=== PATIENT | male | born 1995 | race Caucasian/White ===

== ENCOUNTER 2018-10-23 10:36 | Emergency (ER) | payer OTHER ==
--- NOTE | 2018-10-23 10:50 | ED ---
Abdominal Pain/Male - HPI Summary HPI Summary: This pt is a 23 y/o male presenting to [facility] c/o RLQ abd pain today. Pt reports he had sudden onset of RLQ abd pain that radiates to his LLQ since this morning. He currently rates his pain 6/10 in severity. Denies fever, chills, nausea, vomiting, diarrhea, chest pain, SOB. Per nurse's note pt did not eat today but he last drank coffee and water at 10:00 today. Denies any PMHx. FHx of brother with appendicitis. - History of Current Complaint Chief Complaint: EDAbdPain Stated Complaint: ABD PAIN/FEVER/CHILLS Hx Obtained From: Patient Onset/Duration: Sudden Onset, Lasting Hours, Still Present Timing: Lasting Hours Severity Currently: Moderate Pain Intensity: 6 Pain Scale Used: 0-10 Numeric Location: Discrete At: RLQ Radiates: Yes Radiates to: LLQ Aggravating Factor(s): Nothing Alleviating Factor(s): Nothing Associated Signs And Symptoms: Negative: Fever, Chest Pain, Nausea, Vomiting, Diarrhea - Allergies/Home Medications Allergies/Adverse Reactions: Allergies Allergy/AdvReac Type Severity Reaction Status Date / Time No Known Allergies Allergy Verified 10/23/18 10:45 Home Medications: Home Medications NK [No Home Medications Reported] 10/23/18 [History Confirmed 10/23/18] PMH/Surg Hx/FS Hx/Imm Hx Endocrine/Hematology History: Denies: Hx Diabetes Cardiovascular History: Denies: Hx Hypertension Infectious Disease History: No Infectious Disease History: Denies: Traveled Outside the [place] in Last 30 Days - Family History Family History: Brother with appendicitis - Social History Alcohol Use: Occasionally Substance Use Type: Reports: None Smoking Status (MU): Never Smoked Tobacco Review of Systems Negative: Fever, Chills Negative: Chest Pain Negative: Shortness Of Breath Positive: Abdominal Pain. Negative: Vomiting, Diarrhea, Nausea All Other Systems Reviewed And Are Negative: Yes Physical Exam - Summary Physical Exam Summary: VITAL SIGNS: Reviewed. GENERAL: Patient is a well-developed and nourished male who is lying comfortable in the stretcher. Patient is not in any acute respiratory distress. HEAD AND FACE: Normocephalic and atraumatic. EYES: PERRLA, EOMI x 2, No injected conjunctiva. EARS: Hearing grossly intact. Ear canals and tympanic membranes are WNL. MOUTH: Oropharynx within normal limits. NECK: Supple, trachea is midline, no adenopathy, no JVD. CHEST: Symmetric, no tenderness at palpation LUNGS: Clear to auscultation bilaterally. No wheezing or crackles. CVS: RRR, S1 and S2 present, no murmurs or gallops appreciated. ABDOMEN: Soft, RLQ tenderness. No signs of distention. Positive bowel sounds. No rebound no guarding, and no masses palpated. No abdominal bruit or pulsations. EXTREMITIES: FROM in all major joints, no edema, no cyanosis or clubbing. NEURO: Alert and oriented x 3. No acute neurological deficits. Speech is normal. SKIN: Dry and warm Triage Information Reviewed: Yes Vital Signs On Initial Exam: Initial Vitals Temp Pulse Resp BP Pulse Ox 98.7 F 105 18 152/79 97 10/23/18 10:44 10/23/18 10:44 10/23/18 10:44 10/23/18 10:44 10/23/18 10:44 Vital Signs Reviewed: Yes Diagnostics - Vital Signs Vital Signs Temp Pulse Resp BP Pulse Ox 10/23/18 10:44 98.7 F 105 18 152/79 97 - Laboratory Result Diagrams: 10/23/18 11:02 10/23/18 11:02 Lab Statement: Any lab studies that have been ordered have been reviewed, and results considered in the medical decision making process. - CT Abdomen/Pelvis CT CT Interpretation Completed By: Radiologist Summary of CT Findings: IMPRESSION: No acute CT pathology of the visualized abdomen and pelvis. Dr. Rai has reviewed this report. Re-Evaluation - Re-Evaluation First Eval Re-Evaluation Time: 13:53 Comment: Pt denies any testicular pain. I reviewed the lab and CT results with the pt. Pt will be discharged home. Abdominal Pain Fem Course/Dx - Course Assessment/Plan: Blood work without any significant abnormality except for WBCs of 12.3, hemoglobin 13, hematocrit 39 platelets 243. Glucose is 101 and CRP is 75.24. Abdominal pelvic CT impression: no acute CT pathology of visualized abdomen and pelvis. Therefore in the ED course the patient was given toradol for the pain. The patient will be discharged home with follow-up from primary care physician. Patient is hemodynamically stable alert and oriented 3. I discussed all the findings and test results with the patient. Patient was instructed to return to the emergency room immediately if any of the symptoms return or worsens. Plan of care was discussed with the patient and understands and agrees. All questions were answered at patient satisfaction. There were no further complaints or concerns. Lung exam before discharge: CTA B/L. Good air exchange. No wheezing or crackles heard. CVS: S1 and S2 present. No murmurs appreciated. Patient is alert and oriented x 3. Patient is hemodynamically stable. Patient will be discharged home with follow up PCP in the next 2-3 days. - Diagnoses Differential Diagnosis/HQI/PQRI: Appendicitis, Bowel Obstruction, Constipation, Ureteral Stone, Urinary Tract Infection Provider Diagnoses: Lower abdominal pain Discharge - Sign-Out/Discharge Documenting (check all that apply): Patient Departure - discharge home Patient Received Moderate/Deep Sedation with Procedure: No - Discharge Plan Condition: Stable Disposition: HOME Patient Education Materials: Abdominal Pain (ED) Referrals: [facility], [Z.BUSINESS, APPLICATION, OTHER] - Additional Instructions: FOLLOW UP WITH YOUR PRIMARY CARE PROVIDER IN 2-3 DAYS. RETURN TO THE ED FOR ANY NEW OR WORSENING SYMPTOMS. - Billing Disposition and Condition Condition: STABLE Disposition: Home - Attestation Statements Document Initiated by Scribe: Yes Documenting Scribe: Magalys Zuñiga Provider For Whom Edelmira is Documenting (Include Credential): Carlo Rai MD Scribe Attestation: Magalys Romero, scribed for Carlo Rai MD on 10/23/18 at 1524. Scribe Documentation Reviewed: Yes Provider Attestation: The documentation as recorded by the Magalys romero accurately reflects the service I personally performed and the decisions made by de, Carlo Rai MD Status of Scribe Document: Viewed
[2018-10-23] MEDS ORDERED: NS 0.9% 1000 ML** 1,000 ML IV ONE (10:57)
[2018-10-23 11:09] LABS: ABS Basophils 0 10^3/ul (0-0.2); ABS Eosinophils 0 10^3/ul (0-0.6); ABS Lymphocytes 0.9 10^3/ul (1.0-4.8); ABS Monocytes 1.2 10^3/ul (0-0.8); ABS Neutrophils 10.2 10^3/ul (1.5-7.7); ABS Nucleated RBC 0 10^3/ul; Eosinophil % 0 %; Hematocrit 39 % (42-52); Mean Corpuscular HGB Conc 34 g/dl (31-36); Mean Corpuscular Hemoglobin 30 pg (27-31); Mean Corpuscular Volume 88 fL (80-94); Mean Platelet Volume 6.9 fL (7.4-10.4); Nucleated Red Blood Cells % 0; Platelet Count 243 10^3/ul (150-450); Red Blood Count 4.39 10^6/ul (4.00-5.40); Red Cell Distribution Width 15 % (10.5-15); White Blood Count 12.3 10^3/ul (3.5-10.8)
[2018-10-23 11:44] LABS: Albumin 4.2 g/dL (3.2-5.2); Albumin/Globulin Ratio 1.4 (1-3); BUN/Creatinine Ratio 12.8 (8-20); C Reactive Protein 75.24 mg/L (<8.01); Calcium 9.3 mg/dL (8.6-10.3); EGFR African American 103.3 (>60); EGFR Non-African American 85.4 (>60); Potassium 4.3 mmol/L (3.5-5.0); Total Bilirubin 0.5 mg/dL (0.2-1.0); Total Protein 7.2 g/dL (6.4-8.9)
[2018-10-23] MEDS ORDERED: Iohexol 300* (CONTRAST) 10 ML SDV IV ONE (12:09)
[2018-10-23 12:23] LABS: Urine Appearance Clear; Urine Bacteria Absent (Absent); Urine Bilirubin Negative (Negative); Urine Blood 1+ (Negative); Urine Color Straw; Urine Glucose Negative (Negative); Urine Ketones Negative (Negative); Urine Nitrite Negative (Negative); Urine Protein Negative (Negative); Urine Red Blood Cell Trace(0-2/hpf) (Absent); Urine Specific Gravity 1.008 (1.010-1.030); Urine Urobilinogen Negative (Negative); Urine White Blood Cell Trace(0-5/hpf) (Absent)
[2018-10-23] MEDS ORDERED: Ketorolac INJ* 30 MG/ML 1 ML VIAL IV PUSH ONE (13:50)
[2018-10-23 14:10] VITALS: BP 121/78
== END 2018-10-23 14:09 | disposition home or self-care (01) ==
LOC: ED 10:36
DX: R10.31 Right lower quadrant pain (principal)
CPT/HCPCS: 36415; 74177; 80053; 81003; 81015; 83605; 83690; 85025; 86140; 87086; 96361; 96374; 99282; J1885; Q9967

== ENCOUNTER 2019-01-21 00:05 | Inpatient (IN) | payer OTHER ==
--- NOTE | 2019-01-21 01:02 | ED ---
Adult Trauma - HPI Summary HPI Summary: Patient brought to ED by EMS with hx of ETOH and fall with head injury and + LOC. LOC apparently from 30 seconds to 1 minute. No other details provided. Patient alert and oriented. Patient responds to questions coherently, but repeatedly asking to be left alone. States he does not remember fall. States he had a couple beers. Denies GAMEZ, vision change, N/V, fever, cough, sore throat , CP, SOB, N/V/D, abdominal pain, change in urine, change in BM. - History of Current Complaint Chief Complaint: EDFall Stated Complaint: FALL/ETOH PER EMS Time Seen by Provider: 01/21/19 00:14 Hx Obtained From: Patient, EMS Mechanism of Injury: Fall Loss of Consciousness: brief (seconds) Current Severity: None Pain Intensity: 0 Pain Scale Used: 0-10 Numeric Aggravating Factor(s): Nothing Alleviating Factor(s): Nothing Associated Signs & Symptoms: Positive: Loss of Consciousness - Allergy/Home Medications Allergies/Adverse Reactions: Allergies Allergy/AdvReac Type Severity Reaction Status Date / Time No Known Allergies Allergy Verified 01/21/19 00:18 PMH/Surg Hx/FS Hx/Imm Hx Endocrine/Hematology History: Denies: Hx Diabetes Cardiovascular History: Denies: Hx Hypertension, Hx Pacemaker/ICD History: Denies: Hx Renal Disease Sensory History: Denies: Hx Eye Prosthesis Opthamlomology History: Denies: Hx Legally Blind EENT History: Denies: Hx Deafness Neurological History: Denies: Hx Dementia Psychiatric History: Denies: Hx Autism Infectious Disease History: No Infectious Disease History: Denies: Traveled Outside the [place] in Last 30 Days - Family History Family History: Brother with appendicitis - Social History Alcohol Use: Occasionally Substance Use Type: Reports: None Smoking Status (MU): Never Smoked Tobacco Review of Systems Constitutional: Negative Eyes: Negative ENT: Negative Cardiovascular: Negative Respiratory: Negative Gastrointestinal: Negative Genitourinary: Negative Musculoskeletal: Negative Skin: Negative Neurological: Negative Psychological: Normal All Other Systems Reviewed And Are Negative: Yes Physical Exam - Summary Physical Exam Summary: Patient somnolent, but responsive once awoken. Somewhat confused about events, but oriented to person date, and place. Mumbles answers unless pressed to speak more clearly. Does not remember fall. Neuro exam normal. Mild abrasion to superior/posterior head. No other evidence of trauma to head, face, mouth noted. Full range of motion of neck and jaw. No pain with palpation of back, abdomen, chest wall. Patient moves all 4 extremities freely. Triage Information Reviewed: Yes Vital Signs On Initial Exam: Initial Vitals Temp Pulse Resp BP Pulse Ox 97.9 F 111 22 147/72 100 01/21/19 00:13 01/21/19 00:13 01/21/19 00:13 01/21/19 00:13 01/21/19 00:13 Vital Signs Reviewed: Yes Appearance: Positive: Well-Appearing Skin: Positive: Warm Head/Face: Positive: Normal Head/Face Inspection Eyes: Positive: Normal ENT: Positive: Normal ENT inspection Dental: Negative: Dental Fracture @, Bleeding Neck: Positive: Supple Respiratory/Lung Sounds: Positive: Clear to Auscultation Cardiovascular: Positive: Normal Abdomen Description: Positive: Nontender Musculoskeletal: Positive: Normal Neurological: Positive: Normal Psychiatric: Positive: Normal AVPU Assessment: Alert - Melanie Coma Scale Best Eye Response: 4 - Spontaneous Best Motor Response: 6 - Obeys Commands Best Verbal Response: 5 - Oriented Coma Scale Total: 15 Diagnostics - Vital Signs Vital Signs Temp Pulse Resp BP Pulse Ox 01/21/19 01:00 72 97 01/21/19 00:57 72 122/80 93 01/21/19 00:13 97.9 F 111 22 147/72 100 - Laboratory Result Diagrams: 01/23/19 09:17 01/23/19 09:17 Lab Statement: Any lab studies that have been ordered have been reviewed, and results considered in the medical decision making process. Adult Trauma Course/Dx - Course Course Of Treatment: Patient brought to ED by EMS with hx of ETOH and fall with head injury and + LOC. LOC apparently from 30 seconds to 1 minute. No other details provided. Patient alert and oriented. Patient responds to questions coherently, but repeatedly asking to be left alone. States he does not remember fall. States he had a couple beers. Denies GAMEZ, vision change, N/V, fever, cough, sore throat, CP, SOB, N/V/D, abdominal pain, change in urine, change in BM. Physical exam:Patient somnolent, but responsive once awoken. Somewhat confused about events, but oriented to person date, and place. Mumbles answers unless pressed to speak more clearly. Does not remember fall. Neuro exam normal. Mild abrasion to superior/posterior head. No other evidence of trauma to head, face, mouth noted. Full range of motion of neck and jaw. No pain with palpation of back, abdomen, chest wall. Patient moves all 4 extremities freely. Vital signs within normal limits. WBC 15.8. Potassium 2.9. Creatinine 1.23. EtOH 54. Patient's somnolent, somewhat confused behavior inconsistent with EtOH level is 54. Labs otherwise unremarkable. CT brain positive for subdural hematoma, parenchymal hematoma, cerebral edema, subarachnoid hemorrhage. CT cervical spine negative for acute process. Spoke with neurosurgery mobile application engineer Ezekiel who stated he would review the CAT scan results and come in to evaluate patient. Discussed patient with attending Dr. Smith who also evaluated patient and after reviewing imaging results recommended patient be given mannitol 45mg IV and Keppra 1g IV. Patient evaluated by Dr. Falcon who recommends admission to ICU. EKG A. fib. Dr. Smith recommended magnesium 2 g IV and potassium 10MEQ IV 2. Patient admitted to [facility] [place]. - Diagnoses Provider Diagnoses: Subdural hematoma, Parenchymal hemorrhage, Cerebral edema, Subarachnoid hemorrhage, Fall, Hypokalemia, A-fib, Alcohol abuse - Critical Care Time Critical Care Time: 30-74 min Discharge - Sign-Out/Discharge Documenting (check all that apply): Patient Departure - Discharge Plan Condition: Fair Disposition: ADMITTED TO [facility] - Billing Disposition and Condition Condition: FAIR Disposition: Admitted to [facility]
[2019-01-21] MEDS ORDERED: MANNITOL IV ONE ×2 (01:54→15:00)
[2019-01-21] MEDS ORDERED: MANNITOL 20% IV ONE (01:54)
[2019-01-21] MEDS ORDERED: levETIRAcetam IV* 1,000 MG in NS 0.9% 100 ML* 100 ML IVPB ONE (01:56)
[2019-01-21] MEDS ORDERED: Mannitol 25% (12.5 GM) 50 ML* 12.5 GM/50 ML VIAL ONE ×5 (01:58→13:12)
[2019-01-21] MEDS ORDERED: levETIRAcetam 1000MG IVPREMIX* 1,000 MG/100 ML BAG IVPB ONE (02:03)
[2019-01-21 02:13] LABS: Hematocrit 42 % (42-52); Hemoglobin 13.9 g/dL (14.0-18.0); Mean Corpuscular HGB Conc 33 g/dL (31-36); Mean Corpuscular Hemoglobin 30 pg (27-31); Mean Corpuscular Volume 89 fL (80-94); Mean Platelet Volume 7.7 fL (7.4-10.4); Platelet Count 336 10^3/uL (150-450); Red Blood Count 4.69 10^6 /uL (4.18-5.48); Red Cell Distribution Width 14 % (10.5-15); White Blood Count 15.8 10^3/uL (3.5-10.8)
[2019-01-21 02:26] LABS: ALT 12 U/L (7-52); AST 24 U/L (13-39); Albumin 4.5 g/dL (3.2-5.2); Albumin/Globulin Ratio 1.5 (1-3); Alkaline Phosphatase 67 U/L (34-104); Anion Gap 11 mmol/L (2-11); BUN/Creatinine Ratio 18.7 (8-20); Blood Urea Nitrogen 23 mg/dL (6-24); C Reactive Protein < 1.00 mg/L (<8.01); CO2 Carbon Dioxide 25 mmol/L (22-32); Calcium 9.2 mg/dL (8.6-10.3); Chloride 102 mmol/L (101-111); EGFR African American 89.9 (>60); EGFR Non-African American 74.3 (>60); Glucose 144 mg/dL (70-100); Potassium 2.9 mmol/L (3.5-5.0); Sodium 138 mmol/L (135-145); Total Protein 7.5 g/dL (6.4-8.9)
[2019-01-21 02:35] LABS: INR 0.99 (0.82-1.09)
[2019-01-21] MEDS ORDERED: Ondansetron INJ* 2 MG/ML VIAL IV PRN (02:36)
[2019-01-21 02:39] LABS: ABS Basophils 0.1 10^3/ul (0-0.2); ABS Eosinophils 0.1 10^3/ul (0-0.6); ABS Lymphocytes 5.2 10^3/ul (1.0-4.8); ABS Monocytes 1.1 10^3/ul (0-0.8); ABS Neutrophils 9.4 10^3/ul (1.5-7.7); Eosinophil % 0.6 %; Lymphocyte % 32.8 %; Nucleated Red Blood Cells % 0.1
[2019-01-21] MEDS ORDERED: Mannitol 25% (12.5 GM) 50 ML* 12.5 GM/50 ML VIAL IV ONE ×4 (02:45→13:48)
--- NOTE | 2019-01-21 02:58 | PN ---
Progress Note - Progress Note Date of Service: 01/21/19 SOAP: Subjective: [] Asked to see patient that passed out from standing striking head. Brief LOC.Taken to ER where confused. CT shows diffuse brain injury with edema. Currently arousable ,c/o collar.Does not follow requests. Falls asleep when left alone Objective: []KALEIGH Moves all Ext well Collar discontinued GCS 6-4-3 =13 Assessment: []CTshows multiple contusions Decreased basilar cisterns Plan: []Severe Head Injury Plan -Admit to ICU family en route
[2019-01-21] MEDS ORDERED: Lactated Ringers 1000 ML Bag* 1,000 ML IV SCH (03:00)
[2019-01-21] MEDS ORDERED: Magnesium Sulfate 2 GM IV* 2 GM/50 ML BAG IVPB ONE (03:07)
[2019-01-21 03:12] LABS: Urine Benzodiazepine Screen None Detected (None Detect); Urine Opiates Screen None Detected (None Detect)
[2019-01-21] MEDS: Morphine 4 MG/ML VIAL (1 ml) 4 MG/ML VIAL IV PRN ×2 (03:40→07:06)
[2019-01-21] MEDS: KCL 10 MEQ/50 ML IVPREMIX* 10 MEQ/50 ML BAG IV SCH ×2 (03:44→05:02)
[2019-01-21 07:05] LABS: Hematocrit 42 % (42-52); Hemoglobin 13.7 g/dL (14.0-18.0); Mean Corpuscular HGB Conc 33 g/dL (31-36); Mean Corpuscular Hemoglobin 29 pg (27-31); Mean Corpuscular Volume 88 fL (80-94); Mean Platelet Volume 7.6 fL (7.4-10.4); Platelet Count 283 10^3/uL (150-450); Red Blood Count 4.71 10^6 /uL (4.18-5.48); Red Cell Distribution Width 14 % (10.5-15); White Blood Count 22.6 10^3/uL (3.5-10.8)
[2019-01-21] MEDS ORDERED: Rocuronium* 10 MG/ML VIAL ONE ×3 (07:08→10:51)
[2019-01-21] MEDS ORDERED: Propofol* 10 MG/ML 20 ML BTL ONE (07:08)
[2019-01-21] MEDS ORDERED: Lidocaine 2% PF * 5 ML VIAL ONE (07:09)
[2019-01-21] MEDS ORDERED: fentaNYL* 50 MCG/ML 5 ML VIAL (250 MCG VIAL) ONE ×2 (07:12→12:55)
[2019-01-21 07:14] LABS: ABS Lymphocytes 0.6 10^3/ul (1.0-4.8); ABS Monocytes 2.3 10^3/ul (0-0.8); ABS Neutrophils 19.7 10^3/ul (1.5-7.7); Lymphocyte % 2.6 %
[2019-01-21] MEDS ORDERED: Famotidine IV* 10 MG/ML 2 ML (20 mg) ONE (07:20)
[2019-01-21 07:27] LABS: BUN/Creatinine Ratio 14.7 (8-20); Calcium 9.3 mg/dL (8.6-10.3); EGFR African American 96.2 (>60); EGFR Non-African American 79.5 (>60); Potassium 4.2 mmol/L (3.5-5.0)
[2019-01-21] MEDS ORDERED: Mannitol 25% (12.5 GM) 50 ML* 12.5 GM/50 ML VIAL IV SCH (08:00)
[2019-01-21] MEDS ORDERED: ceFAZolin* 2 GM* ONE DOSE (Duplex) IVPB (08:00)
[2019-01-21] MEDS ORDERED: Esmolol* 10 MG/ML 10 ML (100 mg) ONE (08:21)
[2019-01-21] MEDS ORDERED: Metoprolol Tartrate IV* 1 MG/ML 5 ML VIAL ONE (08:21)
[2019-01-21] MEDS ORDERED: Phenylephrine 10 MG/ML VIAL* 1 ML VIAL ONE ×2 (08:32→12:18)
[2019-01-21] MEDS ORDERED: fentaNYL* 50 MCG/ML 2 ML VIAL (100 MCG VIAL) ONE ×5 (08:45→10:34)
[2019-01-21] MEDS ORDERED: Thrombin 5,000 UNITS* 1 APPLIC KIT - topical use - TOPICAL ONE (08:48)
[2019-01-21] MEDS ORDERED: Lidocaine 1% MPF wEPI 200,000* 30 ML SDV ONE (08:48)
[2019-01-21] MEDS ORDERED: Midazolam* 1 MG/ML 5 ML VIAL (5 MG) ONE ×2 (09:24→12:22)
[2019-01-21] MEDS ORDERED: Propofol* 100 ML ONE (11:23)
[2019-01-21] MEDS ORDERED: Dextrose 50% Syringe 50 ML* 25 GM/50 ML SYRINGE IV PUSH PRN (11:39)
--- NOTE | 2019-01-21 11:52 | HP ---
History of Present Illness - History of Present Illness Reason for Visit: Traumatic brain injury, intubation/mechanical ventilation History of Present Illness: 23 M with no significant past medical history with witnessed loss of consciousness with resultant severe trauma manifesting with scalp hematoma, extensive parenchymal hemorrhagic contusions involving right frontal and left temporal lobes, right fronto-parietal lobe, frontal hematoma, right frontal hemorrhagic contusion, coup/contrecoup lesion s/p bilateral hemicraniectomy , intubated/mechanical ventilated intra-op and remains intubated since. Course complicated by shock and now on levophed, phenylephrine, vasopressin. Currently, on versed/fentayl/nimbex gtt. - Past Medical History Cardiac: Other - no significant PMH - Past Surgical History Past Surgical History: Other - none - Past Social History Smoke: No Alcohol: Occassional Drugs: Marijuana Lives: [place] - [place], [facility] [employer] Review of Systems - Review of Systems Other: Unable to optimally access due to patient current pharmacologic comatose status - Medications/Allergies Allergies/Adverse Reactions: Allergies Allergy/AdvReac Type Severity Reaction Status Date / Time No Known Allergies Allergy Verified 01/21/19 00:18 Medications: Current Medications Dextrose (D50w Syringe 50 Ml*) 12.5 gm IV PUSH .FOR FS < 60 - SS PRN PRN Reason: FS < 60 Lactated Ringer's (Lactated Ringers 1000 Ml Bag*) 1,000 mls @ 75 mls/hr IV PER RATE CHANCE Last Admin: 01/21/19 03:34 Dose: 75 mls/hr Sodium Chloride (Hypertonic) (Hypertonic Sod Chloride 3%*) 500 mls @ 0 mls/hr IVPB ONCE ONE; Protocol Stop: 01/21/19 11:46 Fentanyl Citrate (Fentanyl Infusion Bag 50 Mcg/Ml 50 Ml) 2,500 mcg in 50 mls @ 0 mls/hr IV Q72H CHANCE; Protocol Propofol (Diprivan*) 100 mls @ 0 mls/hr IV .(Initial Rate) CHANCE; Protocol Insulin Human Lispro (Humalog*) 0 units SUBCUT FS Q6 ICU CHANCE; Protocol Mannitol (Mannitol 25% (12.5 Gm) 50 Ml*) 12.5 gm IV Q6H CHANCE Last Admin: 01/21/19 11:29 Dose: 12.5 gm Morphine Sulfate (Morphine 4 Mg/Ml Vial (1 Ml)) 4 mg IV Q2H PRN PRN Reason: HEADACHE/PAIN Last Admin: 01/21/19 07:06 Dose: 2 mg Ondansetron HCl (Zofran Inj*) 4 mg IV Q4H PRN PRN Reason: NAUSEA/VOMITING Exam - Exam Vital Signs: Vital Signs (72 hours) 01/21/19 01/21/19 01/21/19 00:13 00:57 01:00 Temperature 97.9 F Pulse Rate 111 72 72 Respiratory 22 Rate Blood Pressure 147/72 122/80 (mmHg) O2 Sat by Pulse 100 93 97 Oximetry 01/21/19 01/21/19 01/21/19 01:57 02:00 02:03 Temperature Pulse Rate 57 64 69 Respiratory Rate Blood Pressure 118/83 150/73 (mmHg) O2 Sat by Pulse 99 99 96 Oximetry 01/21/19 01/21/19 01/21/19 02:12 02:33 02:48 Temperature 97.7 F 98.6 F 98.2 F Pulse Rate 49 83 114 Respiratory 21 8 13 Rate Blood Pressure 144/89 147/103 144/89 (mmHg) O2 Sat by Pulse 98 100 93 Oximetry 01/21/19 01/21/19 01/21/19 03:00 03:03 03:15 Temperature 98.8 F 98.8 F 97.3 F Pulse Rate 68 48 50 Respiratory 19 13 18 Rate Blood Pressure 153/88 136/71 (mmHg) O2 Sat by Pulse 100 97 99 Oximetry 01/21/19 01/21/19 01/21/19 03:24 03:26 03:35 Temperature 99.1 F 0 F 99.3 F Pulse Rate 50 0 76 Respiratory 13 0 Rate Blood Pressure 136/71 0/0 145/69 (mmHg) O2 Sat by Pulse 98 0 96 Oximetry 01/21/19 01/21/19 01/21/19 03:40 04:01 04:11 Temperature 99.5 F Pulse Rate 50 Respiratory 18 25 18 Rate Blood Pressure (mmHg) O2 Sat by Pulse 98 Oximetry 01/21/19 01/21/19 01/21/19 04:49 05:00 05:06 Temperature 97.9 F 99.5 F Pulse Rate 49 48 Respiratory 18 14 22 Rate Blood Pressure 142/77 (mmHg) O2 Sat by Pulse 100 99 Oximetry 01/21/19 01/21/1919 05:30 06:00 06:12 Temperature 99.5 F 100.0 F 99.5 F Pulse Rate 50 50 52 Respiratory 14 19 28 Rate Blood Pressure 133/72 165/87 (mmHg) O2 Sat by Pulse 99 98 97 Oximetry 01/21/19 01/21/19 01/21/19 06:30 07:00 07:06 Temperature 99.5 F Pulse Rate 54 Respiratory 25 31 22 Rate Blood Pressure 150/85 (mmHg) O2 Sat by Pulse 97 Oximetry 01/21/19 01/21/19 01/21/19 11:12 11:14 11:15 Temperature Pulse Rate 57 70 72 Respiratory Rate Blood Pressure 139/85 144/92 (mmHg) O2 Sat by Pulse 100 100 100 Oximetry General: Other HEENT: Other - s/p bi-hemicraniectomy, ICP in place, generalized scalp edema. R pupil 1mm, L 3 mm, reactive Lungs: Clear to auscultation Cardiovascular: Normal S1, Normal S2, Other - tachycardaia Abdomen: Normal bowel sounds, Soft, Other - bone flap in the abd cavity Extremities: No clubbing, No cyanosis, No edema Skin: No rashes, No breakdown Neurological: Other - sedated and paralyzed Assessment/Plan - Assessment/Plan Assessment: 23 M with no significant past medical history with witnessed loss of consciousness with resultant severe trauma manifesting scalp hematoma, coup/ contrecoup brain injury, multiple areas of parenchymal hematoma and SAD s/p bilaters/p bilateral hemicraniectomy 01/20, intubated/mechanical ventilated intra-op and remains intubated since. Course complicated by shock and now on levophed, phenylephrine, vasopressin. Currently, on versed/fentayl/nimbex gtt. Plan: # Acute Traumatic brain injury (TBI) s/p bilateral hemicraniectomy, ICP placement # Increased intracranial pressure (ICP) # Neurogenic shock # Polyuria # Lactic acidosis # Acute respiratory failure with acute ventilator dependance # Hyponatremia # Hypophosphatemia # Hypocalcemia # Reactive leukocytosis # Acute blood loss anemia - s/p bilateral hemicraniectomy, ICP placement - Na+ target >150 - hypertonic saline 3% at 60cc/h - 23.4% saline 30cc over 10 minutes if Na+ 145 prn - Mannitol prn for increased ICP - CPP target 60, ICP goal 15 - target MAP >70 - Currently, on NE, vasopressin, phenylephrine - RASS goal -4; Currently, on nimbex,versed, fentanyl gtt - No SWT/SBT - keep HOB >45 deg - s/p 2L NS - maintain euvolemia with NS -Na + q 6h - Target temp mgmt 34 deg celsius - keppra for sz ppx- 1000mg q12 h - Target hgb >/=7 or for active bleed - Keep electrolytes WNL PPX DVT-SQH GI- famotidine Critical care issues: Traumatic brain injury, ICP monitoring, acute vent dependance, shock, on pressors Critical care time: 120 minutes
[2019-01-21] MEDS: fentaNYL INFUSION 50 MCG/ML* 2,500 MCG/50 ML BAG IV SCH ×2 (12:11→15:00)
[2019-01-21] MEDS: Sodium Chloride 3% HYPERTONIC* 500 ML IVPB ONE ×2 (12:12→20:52)
[2019-01-21] MEDS ORDERED: EPINEPHrine SYR 0.1MG/ML* SYRINGE ONE ×3 (12:17→13:09)
[2019-01-21] MEDS ORDERED: Succinylcholine* 20 MG/ML 10 ML VIAL ONE (12:22)
[2019-01-21] MEDS ORDERED: Cisatracurium* 2 MG/ML MDV 5 ML ONE ×2 (12:23→12:37)
[2019-01-21] MEDS ORDERED: Sodium Bicarbonate 8.4%* 50 ML SYRINGE ONE (12:25)
[2019-01-21] MEDS ORDERED: NS 0.9% 100 ML* 100 ML ONE (12:31)
[2019-01-21] MEDS ORDERED: Midazolam* 1 MG/ML 10 ML VIAL (10 MG) ONE (12:33)
[2019-01-21] MEDS ORDERED: Norepinephrine 16MCG/ML IVPRE* 4,000 MCG/250 ML BAG IV ONE (12:56)
[2019-01-21] MEDS ORDERED: Cisatracurium* 100 MG in NS 0.9% 250 ML* 200 ML IVPB SCH ×2 (13:00→13:45)
[2019-01-21] MEDS ORDERED: Cisatracurium* 2 MG/ML MDV 5 ML IV ONE (13:00)
[2019-01-21] MEDS ORDERED: Esmolol 10 MG/ML IVPREMIX* 2,500 MG/250 ML BAG IVPB ONE (13:03)
[2019-01-21] MEDS ORDERED: VASOPRESSIN 20 UNITS/ML 1 ML VIAL ONE (13:22)
[2019-01-21] MEDS ORDERED: Midazolam* 1 MG/ML 5 ML VIAL (5 MG) IV SLOW PU ONE (13:53)
[2019-01-21] MEDS ORDERED: Norepinephrine 16MCG/ML IVPRE* 4,000 MCG/250 ML BAG IV SCH (14:00)
[2019-01-21 14:02] LABS: Hematocrit 28 % (42-52); Mean Corpuscular HGB Conc 33 g/dL (31-36); Mean Corpuscular Hemoglobin 29 pg (27-31); Mean Corpuscular Volume 90 fL (80-94); Mean Platelet Volume 7.9 fL (7.4-10.4); Platelet Count 261 10^3/uL (150-450); Red Blood Count 3.07 10^6 /uL (4.18-5.48); Red Cell Distribution Width 14 % (10.5-15); White Blood Count 27.9 10^3/uL (3.5-10.8)
[2019-01-21 14:08] LABS: Activated Partial Thrombo Time 27.9 seconds (26.0-36.3); INR 1.27 (0.82-1.09)
[2019-01-21] MEDS ORDERED: HYDROmorphone INJ1* 1 MG/ML SYRINGE ONE (14:14)
[2019-01-21] MEDS: Midazolam IV DRIP 100 MG in NS 0.9% IV SCH ×2 (14:15→21:22)
[2019-01-21] MEDS: Norepinephrine 16MCG/ML IVPRE* 4,000 MCG/250 ML BAG IV SCH ×4 (14:16→23:42)
[2019-01-21 14:28] LABS: Anion Gap 18 mmol/L (2-11); BUN/Creatinine Ratio 11.9 (8-20); Blood Urea Nitrogen 16 mg/dL (6-24); CO2 Carbon Dioxide 18 mmol/L (22-32); Calcium 7.3 mg/dL (8.6-10.3); Chloride 98 mmol/L (101-111); EGFR African American 81.4 (>60); EGFR Non-African American 67.3 (>60); Glucose 352 mg/dL (70-100); Phosphorus 7.3 mg/dL (2.5-5.0); Potassium 3.8 mmol/L (3.5-5.0); Sodium 134 mmol/L (135-145)
[2019-01-21 14:30] LABS: Troponin I 0.05 ng/mL (<0.04)
[2019-01-21] MEDS: Insulin LISPRO* 1 UNITS UNIT SUBCUT SCH ×2 (14:50→23:16)
[2019-01-21 15:08] LABS: ABS Lymphocytes 2.5 10^3/ul (1.0-4.8); ABS Monocytes 4.1 10^3/ul (0-0.8); ABS Neutrophils 21.3 10^3/ul (1.5-7.7); Nucleated Red Blood Cells % 0.1
[2019-01-21] MEDS ORDERED: PHENobarbital SODIUM(*) 65 MG/ML VIAL ONE (15:16)
[2019-01-21] MEDS ORDERED: fentaNYL* 50 MCG/ML 2 ML VIAL (100 MCG VIAL) IV PRN (15:25)
[2019-01-21] MEDS: PHENOBARBITAL IVPB ONE (15:27)
[2019-01-21] MEDS: NS 0.9% IVPB ONE (15:27)
[2019-01-21] MEDS ORDERED: Acetaminophen SUPP* 650 MG SUPP PR PRN (15:30)
[2019-01-21] MEDS ORDERED: SODIUM CHLORIDE IV SCH ×2 (15:30)
[2019-01-21] MEDS ORDERED: PHENobarbital SODIUM(*) 65 MG/ML VIAL IV ONE (15:58)
--- NOTE | 2019-01-21 16:08 | OP ---
Operative Report - Blank - Operative Report Date of Operation: 01/21/19 Note: Femoral Vein Central Venous Catheter (CVC, Central Line) Placement Indication: Hemodynamic monitoring/Intravenous access Performed by: Marquis Sunshine MD A time-out was completed verifying correct patient, procedure, site, positioning , and special equipment if applicable. The patient was placed in appropriate for central line placement based on the vein to be cannulated. The patients right groin was prepped and draped in sterile fashion. A triple lumen 9-Malagasy Cordis catheter was introduced into the the right common femoral vein using the Seldinger technique and under ultrasound guidance. The catheter was threaded smoothly over the guide wire and appropriate blood return was obtained. Each lumen of the catheter was evacuated of air and flushed with sterile saline. The catheter was then sutured in place to the skin and a sterile dressing applied. Perfusion to the extremity distal to the point of catheter insertion was checked and found to be adequate. I performed the procedure, myself. Estimated Blood Loss: minimal The patient tolerated the procedure well and there were no complications.
--- NOTE | 2019-01-21 16:12 | OP ---
Operative Report - Blank - Operative Report Date of Operation: 01/21/19 Note: RIGHT FEMORAL ARTERIAL LINE (A-Line) PLACEMENT Indication: Hemodynamic monitoring Performed by: Marquis Sunshine MD A time-out was completed verifying correct patient, procedure, site, positioning , and special equipment if applicable. The patients right groin was prepped and draped in sterile fashion. An Arrow arterial line was introduced into the femoral artery under ultrasound guidance. The catheter was threaded over the guide wire and the needle was removed with appropriate pulsatile blood return. The catheter was then sutured in place to the skin and a sterile dressing applied. I performed the entire procedure, myself. Estimated Blood Loss: 3mL The patient tolerated the procedure well and there were no complications.
[2019-01-21] MEDS: levETIRAcetam 1000MG IVPREMIX* 1,000 MG/100 ML BAG IVPB SCH (16:16)
--- NOTE | 2019-01-21 16:22 | ECHO ---
*[facility]* [place] [address] Fax #: [phone] Transthoracic Echocardiogram Patient: Roxana, Height: 72 in / Humberto 182.9 cm : 1995 Weight: 194.6 lb / Study Date: 01/21/2019 88.5 kg Age: 23 BP: 144 / 92 Gender: M BMI/BSA: 26.4 kg/m^2 HR: 133 bpm / 2.11 m^2 *Transmission Systems Operator: * Shannan Burciaga [facility] *Referring Physician: * Marquis Sunshine *Reading Physician: * Pelon Daniel MD Indications: Abnormal EKG. Atrial Fibrillation. History: Subdural hematoma. Conclusions Summary: 1. Left ventricle: Systolic function is hyperdynamic. Wall motion is normal; there are no regional wall motion abnormalities. 2. Right ventricle: Systolic function is hyperdynamic. Systolic pressure is within the normal range. 3. Mitral valve: There is no significant regurgitation. 4. Aortic valve: There is no evidence of stenosis. 5. Tricuspid valve: There is mild regurgitation. 6. Pericardium, extracardiac: There is no significant pericardial effusion. Study data: Transthoracic echocardiogram. Procedure: Transthoracic echocardiography was performed. Image quality was adequate. The study was technically limited due to Patient on ventilator. Complete 2D, spectral Doppler, and color flow Doppler. Location: ICU Patient status: Inpatient. Patient room number: 3. Rhythm: Tachycardia. Findings Left ventricle: The cavity size is at the lower limits of normal. Wall thickness is mildly to moderately increased. Systolic function is hyperdynamic. Wall motion is normal; there are no regional wall motion abnormalities. Left ventricular diastolic function parameters are indeterminate. Right ventricle: The cavity size is below normal. Systolic function is hyperdynamic. Systolic pressure is within the normal range. Left atrium: The atrium is small. Right atrium: The atrium is small. Mitral valve: The leaflets are normal thickness. There is no evidence of stenosis. There is no significant regurgitation. Aortic valve: Not well visualized. The leaflets are normal thickness. There is no evidence of stenosis. There is no significant regurgitation. The ratio of LVOT to aortic valve peak velocity is 0.7. The ratio of LVOT to aortic valve mean velocity is 0.65. The mean systolic gradient is 3.0 mm Hg. The peak systolic gradient is 5.0 mm Hg. Tricuspid valve: The leaflets are normal thickness. There is no evidence of stenosis. There is mild regurgitation. Pulmonic valve: Not well visualized. Aorta: Aortic root: The aortic root is appears normal. Ascending aorta: The ascending aorta is not visualized. Aortic arch: The aortic arch is poorly visualized. Pericardium: There is no significant pericardial effusion. Pulmonary arteries: Not well visualized. Systemic veins: Inferior vena cava: The vessel is normal in size. Measurements Left ventricle Value Ref Right atrium Value Ref KAITY, LAX (L) 3.6 cm 4.2 - 5.8 SI dim, ES (L) 2.9 cm 3.4 - 5.3 ESD, LAX 3.1 cm 2.5 - 4.0 ML dim, ES, A4C 3.5 cm 2.6 - 4.4 FS, LAX (L) 13 % 25 - 43 Estimated RAP 3 mm Hg --------- PW, ED, LAX (H) 1.5 cm 0.6 - 1.0 EF (L) 29 % 52 - 72 Aortic valve Value Ref E', lat darin, TDI (L) 5.3 cm/sec >=10.0 Darin diam, ED 2.0 cm --- ------ E/e', lat darin, 11 Peak v, S 1.14 m/sec ------ --- TDI VTI, S 17.4 cm --------- E', med darin, TDI (L) 6.1 cm/sec >=7.0 Mean grad, S 3.0 mm Hg --- ------ E/e', med darin, 9 Peak grad, S 5.0 mm Hg ------ --- TDI E', avg, TDI 5.7 cm/sec Mitral valve Value Ref E/e', avg, TDI 10 <=14 Peak E 0.57 m/sec --- ------ Peak A 0.74 m/sec --------- LVOT Value Ref Decel time 84 ms --------- Peak ese, S 0.8 m/sec Peak E/A ratio 0.8 --------- Mean grad, S 1 mm Hg Tricuspid valve Value Ref Ventricular septum Value Ref TR peak v 2.44 m/sec <=2.8 IVS, ED, LAX (H) 1.3 cm 0.6 - 1.0 Peak RV-RA grad, S 24 mm Hg --------- Right ventricle Value Ref Aortic root Value Ref KAITY, LAX 1.8 cm Root diam 2.9 cm <3.8 KAITY minor ax, A4C 2.6 cm 1.9 - 3.5 mid Pulmonary artery Value Ref Pressure, S 27 mm Hg Pressure, S 27.0 mm Hg --------- Left atrium Value Ref Inferior vena cava Value Ref AP dim, ES (L) 1.60 cm 3.00 - Diam 1.8 cm --------- 4.00 ML dim, A4C 1.9 cm SI dim, A4C 3.1 cm Legend: (L) and (H) mamadou values outside specified reference range. Prepared and electronically signed by Pelon Daniel MD 01/21/2019 16:20
[2019-01-21] MEDS ORDERED: Magnesium Sulfate 4 GM IV IVPB ONE (17:00)
[2019-01-21 17:17] LABS: Hematocrit 29 % (42-52); Hemoglobin 9.8 g/dL (14.0-18.0); Mean Corpuscular HGB Conc 34 g/dL (31-36); Mean Corpuscular Hemoglobin 30 pg (27-31); Mean Corpuscular Volume 88 fL (80-94); Mean Platelet Volume 7.6 fL (7.4-10.4); Platelet Count 276 10^3/uL (150-450); Red Blood Count 3.27 10^6 /uL (4.18-5.48); Red Cell Distribution Width 14 % (10.5-15); White Blood Count 24.6 10^3/uL (3.5-10.8)
[2019-01-21 17:24] LABS: INR 1.21 (0.82-1.09)
[2019-01-21 17:36] LABS: BUN/Creatinine Ratio 12.4 (8-20); Blood Urea Nitrogen 16 mg/dL (6-24); CO2 Carbon Dioxide 23 mmol/L (22-32); Calcium 7.9 mg/dL (8.6-10.3); Chloride 100 mmol/L (101-111); EGFR African American 85.1 (>60); EGFR Non-African American 70.3 (>60); Glucose 137 mg/dL (70-100); Magnesium 2.1 mg/dL (1.9-2.7); Sodium 131 mmol/L (135-145)
[2019-01-21 17:39] LABS: Anion Gap 8 mmol/L (2-11); Phosphorus < 1.0 mg/dL (2.5-5.0); Potassium 5.5 mmol/L (3.5-5.0)
[2019-01-21] MEDS ORDERED: NS IVPB ONE ×2 (17:43→17:50)
[2019-01-21] MEDS ORDERED: POTASSIUM PHOSPHATE IVPB ONE (17:43)
[2019-01-21] MEDS ORDERED: Calcium Gluconate INJ* 2 GM in NS 0.9% 100 ML* 100 ML IV ONE (17:45)
[2019-01-21] MEDS ORDERED: SODIUM PHOSPHATE IVPB ONE (17:50)
[2019-01-21] MEDS: NS 0.9% 1000 ML** 2,000 ML IV ONE ×2 (17:59→19:47)
[2019-01-21] MEDS ORDERED: SODIUM CHLORIDE IV PRN ×2 (18:00)
[2019-01-21] MEDS ORDERED: KCL 20 MEQ/100 ML IVPREMIX* 20 MEQ/100 ML BAG IV SCH (18:00)
[2019-01-21 18:03] LABS: ABS Monocytes 4.8 10^3/ul (0-0.8); ABS Neutrophils 17.8 10^3/ul (1.5-7.7); Lymphocyte % 7.9 %
[2019-01-21] MEDS: Famotidine IV* 10 MG/ML 2 ML (20 mg) IV SLOW PU SCH (18:04)
[2019-01-21 19:24] LABS: Urine Appearance Clear; Urine Bacteria Absent (Absent); Urine Bilirubin Negative (Negative); Urine Blood 1+ (Negative); Urine Color Straw; Urine Glucose Negative (Negative); Urine Ketones Negative (Negative); Urine Nitrite Negative (Negative); Urine Protein Negative (Negative); Urine Red Blood Cell Trace(0-2/hpf) (Absent); Urine Specific Gravity 1.027 (1.010-1.030); Urine Urobilinogen Negative (Negative); Urine White Blood Cell Absent (Absent)
[2019-01-21] MEDS ORDERED: Vecuronium Bromide* 10 MG in NS 0.9% 100 ML* 100 ML IV SCH (19:30)
[2019-01-21] MEDS ORDERED: Famotidine IV * 20 MG in NS 0.9% 100 ML* 100 ML IV SCH (21:00)
[2019-01-21] MEDS ORDERED: Sodium Chloride 3% HYPERTONIC* 500 ML IVPB ONE (21:00)
[2019-01-21] MEDS: Propofol* 100 ML IV SCH (21:00)
--- NOTE | 2019-01-21 21:04 | OP ---
DATE OF OPERATION: 01/21/19 - ROOM #ICU-03 DATE OF : [birth year] PRIMARY SURGEON: Javi Falcon MD INSURANCE SALES PROFESSIONAL: Dr. Ysabel Streeter. ANESTHESIA: General. 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 OPERATIVE PROCEDURE: Bilateral decompressive craniectomies for trauma, placement of intracranial pressure monitor, storage of bone flaps in the left upper quadrant. DESCRIPTION OF PROCEDURE: This patient came to the operating room combative and difficult to restrain. His history is that of having suffered a head injury at approximately 1 a.m. on the evening prior to his admission. He had become neurologically less responsive, and the decision made to bring him to surgery for bilateral craniectomies for decompression for a severe bilateral traumatic brain injury. The patient was placed on operating room table in the supine position and after satisfactory general anesthesia was obtained, the head was clipped, prepped and draped in a sterile manner for bilateral craniectomy exposure. A Souttar cranial flap was outlined anteriorly, running from one zygomatic arch just behind the hairline down to the other zygomatic arch. This was then joined in the midline by a midline anterior to posterior scalp incision running back to the parietooccipital junction. At the parietooccipital junction, an additional limb of the incision was extended out to either side, so that the ultimate incision ended up looking like the letter H. This incision was infiltrated with 1% Xylocaine with epinephrine after which it was turned down sharply to the galea. The scalp flap was reflected anteriorly and maintained in position with Fish-Hook retractors. The temporalis muscle was detached from the bone and also retracted out of the way. Utilizing the power drill, sonido holes were placed, initially just 3 cm to the right of midline anteriorly with a second sonido hole 3 cm to the right of midline posteriorly, and a third sonido hole in the temporal region. A freed bone flap was removed with the power drill. The drill was noted to be quite tense and was opened in a cruciate manner to allow for brain relaxation. There were noted to be multiple areas on the right hemisphere of discolored brain consistent with multiple contusions. There was also a small component of epidural hematoma, which was removed on this side. In a similar manner, exposure was obtained on the left side. After placing sonido holes 3 cm to the left of midline anteriorly, 3 cm to the left of midline posteriorly and a sonido hole on the temporal area, a bone flap was removed. On this side, there was a small amount of acute subdural blood that was removed. There was also noted to be marked temporal contused brain projecting into the temporal aspect of the exposure. Additional craniectomy was done with Leksell rongeur to enlarge the temporal exposure. The temporal contusion was then gently decompressed as this represented his dominant temporal lobe. This was done with suction and irrigation and several areas of contused brain removed. Hemostasis was obtained with temporary Gelfoam as well as Surgicel. After assuring adequate hemostasis, the wound was thoroughly irrigated, after which a post craniotomy Yana monitor was zeroed and brought into the field. This was inserted into the right frontal lobe. The skin incisions were then reapproximated with 2-0 Vicryl for the subcutaneous tissues and a running locking 0 Prolene suture for the skin. Attention was then directed to the left upper quadrant where incision was started 3 cm to the left of midline and extending out to the costal margin. This incision was opened down to the subcutaneous tissues. Using the Metzenbaum scissors, subcutaneous pocket was then fashioned both inferiorly and superiorly and after these pockets have been established, his skull flaps were placed into the subcutaneous pockets. The subcutaneous tissues were then reapproximated with 2-0 Vicryl and skin macie applied to the skin. The estimated blood loss was 400 cc and the final sponge, jeff, and needle counts were correct. The patient was taken to the intensive care unit, intubated and in critical condition. [id number]/[facility] #: [id number] [facility]
[2019-01-21] MEDS: Sodium Chloride TAB* 1 GM PO SCH (21:39)
[2019-01-21] MEDS: Vecuronium Bromide* 10 MG in NS 0.9% 100 ML* 100 ML IV SCH (21:58)
[2019-01-21] MEDS: Heparin VIAL(*) 5000 UNITS/ML VIAL (FIVE THOUSAND) SUBCUT SCH (23:17)
[2019-01-22] MEDS: Vecuronium Bromide* 10 MG in NS 0.9% 100 ML* 100 ML IV SCH ×5 (00:28→07:27)
[2019-01-22 00:30] LABS: Hematocrit 26 % (42-52); Hemoglobin 8.7 g/dL (14.0-18.0); Mean Corpuscular HGB Conc 33 g/dL (31-36); Mean Corpuscular Hemoglobin 30 pg (27-31); Mean Corpuscular Volume 89 fL (80-94); Mean Platelet Volume 7.5 fL (7.4-10.4); Platelet Count 238 10^3/uL (150-450); Red Blood Count 2.96 10^6 /uL (4.18-5.48); Red Cell Distribution Width 14 % (10.5-15); White Blood Count 18.4 10^3/uL (3.5-10.8)
[2019-01-22 00:41] LABS: ABS Lymphocytes 2.1 10^3/ul (1.0-4.8); ABS Monocytes 2.8 10^3/ul (0-0.8); ABS Neutrophils 13.5 10^3/ul (1.5-7.7); INR 1.31 (0.82-1.09); Lymphocyte % 11.5 %
[2019-01-22 00:48] LABS: BUN/Creatinine Ratio 11.4 (8-20); Calcium 8.2 mg/dL (8.6-10.3); EGFR African American 107.9 (>60); EGFR Non-African American 89.2 (>60); Magnesium 2.4 mg/dL (1.9-2.7); Phosphorus 3.4 mg/dL (2.5-5.0); Potassium 4.2 mmol/L (3.5-5.0)
[2019-01-22] MEDS ORDERED: fentaNYL INFUSION 50 MCG/ML* 2,500 MCG/50 ML BAG IV SCH (01:00)
[2019-01-22] MEDS: Insulin LISPRO* 1 UNITS UNIT SUBCUT SCH ×4 (01:20→18:18)
[2019-01-22] MEDS: Propofol* 100 ML IV SCH (01:55)
[2019-01-22] MEDS: Norepinephrine 16MCG/ML IVPRE* 4,000 MCG/250 ML BAG IV SCH ×3 (02:23→19:57)
[2019-01-22] MEDS: levETIRAcetam 1000MG IVPREMIX* 1,000 MG/100 ML BAG IVPB SCH ×2 (03:47→16:28)
[2019-01-22] MEDS: Phenylephrine 10 MG/ML VIAL* 50 MG in NS 0.9% 250 ML* 245 ML IV SCH ×2 (04:09→18:29)
[2019-01-22 05:36] LABS: Hematocrit 25 % (42-52); Hemoglobin 8.1 g/dL (14.0-18.0); Mean Corpuscular HGB Conc 33 g/dL (31-36); Mean Corpuscular Hemoglobin 29 pg (27-31); Mean Corpuscular Volume 89 fL (80-94); Mean Platelet Volume 7.7 fL (7.4-10.4); Platelet Count 206 10^3/uL (150-450); Red Blood Count 2.78 10^6 /uL (4.18-5.48); Red Cell Distribution Width 14 % (10.5-15); White Blood Count 15.7 10^3/uL (3.5-10.8)
[2019-01-22 05:38] LABS: ABS Lymphocytes 2.3 10^3/ul (1.0-4.8); ABS Monocytes 2.1 10^3/ul (0-0.8); ABS Neutrophils 11.3 10^3/ul (1.5-7.7); Lymphocyte % 14.9 %; Nucleated Red Blood Cells % 0.1
[2019-01-22 05:39] LABS: INR 1.34 (0.82-1.09)
[2019-01-22 05:55] LABS: BUN/Creatinine Ratio 12.4 (8-20); Calcium 7.9 mg/dL (8.6-10.3); EGFR African American 130.6 (>60); EGFR Non-African American 107.9 (>60); Magnesium 2.2 mg/dL (1.9-2.7); Phosphorus 2.8 mg/dL (2.5-5.0)
[2019-01-22] MEDS: NS 0.9% IVPB ONE (06:40)
[2019-01-22] MEDS: PHENOBARBITAL IVPB ONE (06:40)
[2019-01-22] MEDS: Heparin VIAL(*) 5000 UNITS/ML VIAL (FIVE THOUSAND) SUBCUT SCH (06:41)
[2019-01-22] MEDS ORDERED: Midazolam IV DRIP 100 MG in NS 0.9% IV SCH (07:00)
[2019-01-22 09:48] LABS: Albumin 3.1 g/dL (3.2-5.2); Albumin/Globulin Ratio 1.3 (1-3); BUN/Creatinine Ratio 12.8 (8-20); EGFR African American 135.8 (>60); EGFR Non-African American 112.3 (>60); Globulin 2.3 g/dL (2-4); Potassium 3.8 mmol/L (3.5-5.0); Total Bilirubin 0.3 mg/dL (0.2-1.0); Total Protein 5.4 g/dL (6.4-8.9)
[2019-01-22] MEDS: Sodium Chloride TAB* 1 GM PO SCH (09:55)
[2019-01-22] MEDS: Famotidine IV* 10 MG/ML 2 ML (20 mg) IV SLOW PU SCH ×2 (10:21→21:57)
--- NOTE | 2019-01-22 10:35 | PN ---
Date of Service: 01/22/19 Critical Care Services: 23 M with no significant past medical history with witnessed loss of consciousness with resultant severe trauma manifesting with scalp hematoma, extensive parenchymal hemorrhagic contusions involving right frontal and left temporal lobes, right fronto-parietal lobe, frontal hematoma, right frontal hemorrhagic contusion, coup/contrecoup lesion s/p bilateral hemicraniectomy , intubated/mechanical ventilated intra-op and remains intubated since. Course complicated by shock and now on levophed, phenylephrine, vasopressin. Currently, on versed/fentayl/nimbex gtt. 01/22: Patient seen and examined at the bedside. Propofol, nimbex, and fentanyl turned off this am. Re-warming started. Remains on pressors- NE, vasopressin, and Phenylephrine. 3% HS stopped overnight. + UOP. Remains on the ventilator, no spontaneous breaths appreciated. Vital Signs: Temp Pulse Resp BP SpO2 FiO2 93.9 F 66 16 157/113 100 30 01/22/19 08:00 01/22/19 10:01 01/22/19 10:00 01/22/19 04:14 01/22/19 10:01 01/22 08:00 Physical Exam: General: Other HEENT: Other - s/p bi-hemicraniectomy, ICP in place, generalized scalp edema. Periorbital edema and ecchymosis. Pupils fixed and midline 4mm bilaterally Lungs: Clear to auscultation Cardiovascular: Normal S1, Normal S2, Other - tachycardaia Abdomen: Normal bowel sounds, Soft, Other - bone flap in the abd cavity Extremities: No clubbing, No cyanosis, No edema Skin: No rashes, No breakdown Neurological: sedated/paralyzed. Unable to optimally access Fluid Balance (Past 24 Hours): I= O= Net Intake & Output 01/20/19 01/21/19 01/22/19 01/23/19 06:59 06:59 06:59 06:59 Intake Total 355 4793 324 Output Total 5343 5940 575 Balance -1345 -1147 -251 Weight 195 lb 1.745 oz 205 lb 14.588 oz Intake: IV Fluids 355 50 LR 300 NS 50ML, Cefazolin 2G 50 Potassium 55 IVPB 956 Medicated IV 3223 167 CC - Cisatracurium 352 CC - Norepinephrine/ 1549 Levophed CC - Phenylephrine/ 246 Neosynephrine CC - Vasopressin/ 98 Pitressin calcium gluconate 120 propofol 246 55 sodium phos 199 vecuromium 413 112 IV Narcotic Infusion 564 157 Fentanyl 183 47 Versed 381 110 Oral 0 Output: ALVAREZ #1 40 Urine 800 [place] 900 5650 575 Estimated Blood Loss 250 ADLs: Meal Record Start: 01/21/19 03: 32 Freq: 09,13,18 Status: Active Protocol: Created 01/21/19 03:32 System (Rec: 01/21/19 03:32 System ICU-M33) Document 01/21/19 13:00 [id number] (Rec: 01/21/19 16:04 [id number] ICU-M33) Document 01/21/19 18:00 [id number] (Rec: 01/21/19 18:14 [id number] ICU-3) Document 01/22/19 09:00 [id number] (Rec: 01/22/19 09:54 [id number] ICU-M33) Intake and Output Start: 01/21/19 00: 13 Freq: Status: Cancelled Protocol: Created 01/21/19 00:13 System (Rec: 01/21/19 00:13 System ED-C22) Document 01/21/19 03:09 [id number] (Rec: 01/21/19 03:09 [id number] ED-C22) Intake and Output Start: 01/21/19 03: 32 Freq: Q1HR Status: Cancelled Protocol: Created 01/21/19 03:32 System (Rec: 01/21/19 03:32 System ICU-M33) Document 01/21/19 05:08 [id number] (Rec: 01/21/19 05:08 [id number] ICU-C12) Document 01/21/19 06:00 [id number] (Rec: 01/21/19 07:20 [id number] ICU-C12) Document 01/21/19 07:00 [id number] (Rec: 01/21/19 07:35 [id number] ICU-C25) Intake and Output Start: 01/21/19 11: 25 Freq: Q1HR Status: Active Protocol: Created 01/21/19 11:26 [id number] (Rec: 01/21/19 11:26 BKG [id number]) Document 01/21/19 11:33 [id number] (Rec: 01/21/19 11:33 [id number] ICU-M33) Document 01/21/19 11:55 [id number] (Rec: 01/21/19 11:55 [id number] ICU-M33) Document 01/21/19 13:00 [id number] (Rec: 01/21/19 16:04 [id number] ICU-M33) Document 01/21/19 16:00 [id number] (Rec: 01/21/19 16:25 [id number] ICU-M33) Document 01/21/19 17:00 [id number] (Rec: 01/21/19 17:03 [id number] ICU-M33) Document 01/21/19 18:00 [id number] (Rec: 01/21/19 18:14 [id number] ICU-M33) Document 01/21/19 19:00 [id number] (Rec: 01/21/19 19:59 [id number] ICU-M33) Document 01/21/19 20:00 [id number] (Rec: 01/21/19 21:51 [id number] ICU-M33) Document 01/21/19 21:00 [id number] (Rec: 01/21/19 21:51 [id number] ICU-M33) Document 01/21/19 21:51 [id number] (Rec: 01/21/19 21:51 [id number] ICU-M33) Document 01/21/19 23:00 [id number] (Rec: 01/21/19 23:58 [id number] ICU-M33) Document 01/21/19 23:58 [id number] (Rec: 01/21/19 23:58 [id number] ICU-M33) Document 01/22/19 00:00 [id number] (Rec: 01/22/19 00:31 [id number] ICU-M33) Document 01/22/19 01:00 [id number] (Rec: 01/22/19 01:08 [id number] ICU-M33) Document 01/22/19 02:00 [id number] (Rec: 01/22/19 02:14 [id number] ICU-M33) Document 01/22/19 03:00 [id number] (Rec: 01/22/19 03:08 [id number] ICU-M33) Document 01/22/19 04:00 [id number] (Rec: 01/22/19 04:08 [id number] ICU-M33) Document 01/22/19 05:00 [id number] (Rec: 01/22/19 05:03 [id number] ICU-M33) Document 01/22/19 05:57 [id number] (Rec: 01/22/19 05:57 [id number] ICU-M33) Document 01/22/19 07:00 [id number] (Rec: 01/22/19 07:27 [id number] ICU-M33) Document 01/22/19 08:00 [id number] (Rec: 01/22/19 08:00 [id number] ICU-M33) Document 01/22/19 09:00 [id number] (Rec: 01/22/19 09:54 [id number] ICU-M33) Document 01/22/19 09:54 [id number] (Rec: 01/22/19 09:55 [id number] ICU-M33) Labs: Laboratory Results - last 24 hr 01/21/19 01/21/19 01/21/19 00:53 11:42 11:51 WBC RBC Hgb Hct MCV MCH MCHC RDW Plt Count MPV Neut % (Auto) Lymph % (Auto) [place] % (Auto) Eos % (Auto) Baso % (Auto) Absolute Neuts (auto) Absolute Lymphs (auto) Absolute Monos (auto) Absolute Eos (auto) Absolute Basos (auto) Absolute Nucleated RBC Nucleated RBC % Hem Pathologist Commnt INR (Anticoag Therapy) APTT Patient Temperature Not Reportable ABG pH 7.41 ABG pH (Temp Correct) Not Reportable ABG pCO2 33 L ABG pCO2 (Temp Corrct Not Reportable ABG pO2 221 H ABG pO2 (Temp Correct Not Reportable ABG HCO3 22.7 ABG O2 Saturation 100.0 H ABG Base Excess -2.9 L Respiration Rate Not Reportable O2 Delivery Device vent Ventilator Type Not Reportable Vent Mode Not Reportable FiO2 Not Reportable Inspiratory Time Not Reportable PEEP Not Reportable Pressure Support Not Reportable Pressure Control Not Reportable EPAP Not Reportable IPAP Not Reportable BiPAP Not Reportable Sodium 137 Potassium Chloride Carbon Dioxide Anion Gap BUN Creatinine Est GFR ( Amer) Est GFR (Non-Af Amer) BUN/Creatinine Ratio Glucose POC Glucose (mg/dL) Serum Osmolality Lactic Acid Calcium Phosphorus Magnesium Total Bilirubin AST ALT Alkaline Phosphatase Troponin I Total Protein Albumin Globulin Albumin/Globulin Ratio Urine Color Urine Appearance Urine pH Ur Specific [place] Urine Protein Urine Ketones Urine Blood Urine Nitrate Urine Bilirubin Urine Urobilinogen Ur Leukocyte Esterase Urine WBC (Auto) Urine RBC (Auto) Urine Bacteria Urine Glucose Blood Type Antibody Screen 01/21/19 01/21/19 01/21/19 13:25 13:25 13:25 WBC 27.9 H RBC 3.07 L Hgb 9.0 L Hct 28 L MCV 90 MCH 29 MCHC 33 RDW 14 Plt Count 261 MPV 7.9 Neut % (Auto) 76.2 Lymph % (Auto) 9.0 [place] % (Auto) 14.8 Eos % (Auto) 0.0 Baso % (Auto) 0.0 Absolute Neuts (auto) 21.3 H Absolute Lymphs (auto) 2.5 Absolute Monos (auto) 4.1 H Absolute Eos (auto) 0.0 Absolute Basos (auto) 0.0 Absolute Nucleated RBC 0.0 Nucleated RBC % 0.1 Hem Pathologist Commnt INR (Anticoag Therapy) 1.27 H APTT 27.9 Patient Temperature ABG pH ABG pH (Temp Correct) ABG pCO2 ABG pCO2 (Temp Corrct ABG pO2 ABG pO2 (Temp Correct ABG HCO3 ABG O2 Saturation ABG Base Excess Respiration Rate O2 Delivery Device Ventilator Type Vent Mode FiO2 Inspiratory Time PEEP Pressure Support Pressure Control EPAP IPAP BiPAP Sodium 134 L Potassium 3.8 Chloride 98 L Carbon Dioxide 18 L Anion Gap 18 H BUN 16 Creatinine 1.34 H Est GFR ( Amer) 81.4 Est GFR (Non-Af Amer) 67.3 BUN/Creatinine Ratio 11.9 Glucose 352 H POC Glucose (mg/dL) Serum Osmolality Lactic Acid Calcium 7.3 L Phosphorus 7.3 H Magnesium Total Bilirubin AST ALT Alkaline Phosphatase Troponin I 0.05 H* Total Protein Albumin Globulin Albumin/Globulin Ratio Urine Color Urine Appearance Urine pH Ur Specific [place] Urine Protein Urine Ketones Urine Blood Urine Nitrate Urine Bilirubin Urine Urobilinogen Ur Leukocyte Esterase Urine WBC (Auto) Urine RBC (Auto) Urine Bacteria Urine Glucose Blood Type Antibody Screen 01/21/19 01/21/19 01/21/19 13:25 13:25 13:35 WBC RBC Hgb Hct MCV MCH MCHC RDW Plt Count MPV Neut % (Auto) Lymph % (Auto) [place] % (Auto) Eos % (Auto) Baso % (Auto) Absolute Neuts (auto) Absolute Lymphs (auto) Absolute Monos (auto) Absolute Eos (auto) Absolute Basos (auto) Absolute Nucleated RBC Nucleated RBC % Hem Pathologist Commnt INR (Anticoag Therapy) APTT Patient Temperature Not Reportable ABG pH 7.34 L ABG pH (Temp Correct) Not Reportable ABG pCO2 31 L ABG pCO2 (Temp Corrct Not Reportable ABG pO2 197 H ABG pO2 (Temp Correct Not Reportable ABG HCO3 18.8 L ABG O2 Saturation 100.0 H ABG Base Excess -7.9 L Respiration Rate Not Reportable O2 Delivery Device Vent Ventilator Type Not Reportable Vent Mode Not Reportable FiO2 Not Reportable Inspiratory Time Not Reportable PEEP Not Reportable Pressure Support Not Reportable Pressure Control Not Reportable EPAP Not Reportable IPAP Not Reportable BiPAP Not Reportable Sodium Potassium Chloride Carbon Dioxide Anion Gap BUN Creatinine Est GFR ( Amer) Est GFR (Non-Af Amer) BUN/Creatinine Ratio Glucose POC Glucose (mg/dL) Serum Osmolality Lactic Acid 9.8 H* Calcium Phosphorus Magnesium Total Bilirubin AST ALT Alkaline Phosphatase Troponin I Total Protein Albumin Globulin Albumin/Globulin Ratio Urine Color Urine Appearance Urine pH Ur Specific [place] Urine Protein Urine Ketones Urine Blood Urine Nitrate Urine Bilirubin Urine Urobilinogen Ur Leukocyte Esterase Urine WBC (Auto) Urine RBC (Auto) Urine Bacteria Urine Glucose Blood Type O Positive Antibody Screen Negative 01/21/19 01/21/19 01/21/19 14:24 16:55 16:55 WBC RBC Hgb Hct MCV MCH MCHC RDW Plt Count MPV Neut % (Auto) Lymph % (Auto) [place] % (Auto) Eos % (Auto) Baso % (Auto) Absolute Neuts (auto) Absolute Lymphs (auto) Absolute Monos (auto) Absolute Eos (auto) Absolute Basos (auto) Absolute Nucleated RBC Nucleated RBC % Hem Pathologist Commnt INR (Anticoag Therapy) APTT Patient Temperature ABG pH ABG pH (Temp Correct) ABG pCO2 ABG pCO2 (Temp Corrct ABG pO2 ABG pO2 (Temp Correct ABG HCO3 ABG O2 Saturation ABG Base Excess Respiration Rate O2 Delivery Device Ventilator Type Vent Mode FiO2 Inspiratory Time PEEP Pressure Support Pressure Control EPAP IPAP BiPAP Sodium 133 L 131 L Potassium 5.5 H D Chloride 100 L Carbon Dioxide 23 Anion Gap 8 BUN 16 Creatinine 1.29 H Est GFR ( Amer) 85.1 Est GFR (Non-Af Amer) 70.3 BUN/Creatinine Ratio 12.4 Glucose 137 H POC Glucose (mg/dL) Serum Osmolality 314 H Lactic Acid Calcium 7.9 L Phosphorus < 1.0 L* Magnesium 2.1 Total Bilirubin AST ALT Alkaline Phosphatase Troponin I Total Protein Albumin Globulin Albumin/Globulin Ratio Urine Color Urine Appearance Urine pH Ur Specific [place] Urine Protein Urine Ketones Urine Blood Urine Nitrate Urine Bilirubin Urine Urobilinogen Ur Leukocyte Esterase Urine WBC (Auto) Urine RBC (Auto) Urine Bacteria Urine Glucose Blood Type Antibody Screen 01/21/19 01/21/19 01/21/19 16:55 16:55 16:55 WBC 24.6 H RBC 3.27 L Hgb 9.8 L Hct 29 L MCV 88 MCH 30 MCHC 34 RDW 14 Plt Count 276 MPV 7.6 Neut % (Auto) 72.3 Lymph % (Auto) 7.9 [place] % (Auto) 19.7 Eos % (Auto) 0.0 Baso % (Auto) 0.1 Absolute Neuts (auto) 17.8 H Absolute Lymphs (auto) 2.0 Absolute Monos (auto) 4.8 H Absolute Eos (auto) 0.0 Absolute Basos (auto) 0.0 Absolute Nucleated RBC 0.0 Nucleated RBC % 0.0 Hem Pathologist Commnt INR (Anticoag Therapy) 1.21 H APTT Patient Temperature ABG pH ABG pH (Temp Correct) ABG pCO2 ABG pCO2 (Temp Corrct ABG pO2 ABG pO2 (Temp Correct ABG HCO3 ABG O2 Saturation ABG Base Excess Respiration Rate O2 Delivery Device Ventilator Type Vent Mode FiO2 Inspiratory Time PEEP Pressure Support Pressure Control EPAP IPAP BiPAP Sodium Potassium Chloride Carbon Dioxide Anion Gap BUN Creatinine Est GFR ( Amer) Est GFR (Non-Af Amer) BUN/Creatinine Ratio Glucose POC Glucose (mg/dL) Serum Osmolality Lactic Acid 5.0 H* Calcium Phosphorus Magnesium Total Bilirubin AST ALT Alkaline Phosphatase Troponin I Total Protein Albumin Globulin Albumin/Globulin Ratio Urine Color Urine Appearance Urine pH Ur Specific [place] Urine Protein Urine Ketones Urine Blood Urine Nitrate Urine Bilirubin Urine Urobilinogen Ur Leukocyte Esterase Urine WBC (Auto) Urine RBC (Auto) Urine Bacteria Urine Glucose Blood Type Antibody Screen 01/21/19 01/21/19 01/21/19 17:40 18:32 20:21 WBC RBC Hgb Hct MCV MCH MCHC RDW Plt Count MPV Neut % (Auto) Lymph % (Auto) [place] % (Auto) Eos % (Auto) Baso % (Auto) Absolute Neuts (auto) Absolute Lymphs (auto) Absolute Monos (auto) Absolute Eos (auto) Absolute Basos (auto) Absolute Nucleated RBC Nucleated RBC % Hem Pathologist Commnt INR (Anticoag Therapy) APTT Patient Temperature 38.3 ABG pH 7.50 H ABG pH (Temp Correct) Not Reportable ABG pCO2 25 L ABG pCO2 (Temp Corrct Not Reportable ABG pO2 210 H ABG pO2 (Temp Correct Not Reportable ABG HCO3 23.3 ABG O2 Saturation 100.0 H ABG Base Excess -2.1 L Respiration Rate Not Reportable O2 Delivery Device vent Ventilator Type Not Reportable Vent Mode Not Reportable FiO2 Not Reportable Inspiratory Time Not Reportable PEEP Not Reportable Pressure Support Not Reportable Pressure Control Not Reportable EPAP Not Reportable IPAP Not Reportable BiPAP Not Reportable Sodium Potassium Chloride Carbon Dioxide Anion Gap BUN Creatinine Est GFR ( Amer) Est GFR (Non-Af Amer) BUN/Creatinine Ratio Glucose POC Glucose (mg/dL) 159 H Serum Osmolality Lactic Acid Calcium Phosphorus Magnesium Total Bilirubin AST ALT Alkaline Phosphatase Troponin I Total Protein Albumin Globulin Albumin/Globulin Ratio Urine Color Straw Urine Appearance Clear Urine pH 7.0 Ur Specific [place] 1.027 Urine Protein Negative Urine Ketones Negative Urine Blood 1+ A Urine Nitrate Negative Urine Bilirubin Negative Urine Urobilinogen Negative Ur Leukocyte Esterase Negative Urine WBC (Auto) Absent Urine RBC (Auto) Trace(0-2/hpf) Urine Bacteria Absent Urine Glucose Negative Blood Type Antibody Screen 01/21/19 01/22/19 01/22/19 21:35 00:13 00:13 WBC 18.4 H RBC 2.96 L Hgb 8.7 L Hct 26 L MCV 89 MCH 30 MCHC 33 RDW 14 Plt Count 238 MPV 7.5 Neut % (Auto) 73.1 Lymph % (Auto) 11.5 [place] % (Auto) 15.3 Eos % (Auto) 0.0 Baso % (Auto) 0.1 Absolute Neuts (auto) 13.5 H Absolute Lymphs (auto) 2.1 Absolute Monos (auto) 2.8 H Absolute Eos (auto) 0.0 Absolute Basos (auto) 0.0 Absolute Nucleated RBC 0.0 Nucleated RBC % 0.0 Hem Pathologist Commnt INR (Anticoag Therapy) APTT Patient Temperature ABG pH ABG pH (Temp Correct) ABG pCO2 ABG pCO2 (Temp Corrct ABG pO2 ABG pO2 (Temp Correct ABG HCO3 ABG O2 Saturation ABG Base Excess Respiration Rate O2 Delivery Device Ventilator Type Vent Mode FiO2 Inspiratory Time PEEP Pressure Support Pressure Control EPAP IPAP BiPAP Sodium 148 H D Potassium 4.2 Chloride 116 H Carbon Dioxide 23 Anion Gap 9 BUN 12 Creatinine 1.05 Est GFR ( Amer) 107.9 Est GFR (Non-Af Amer) 89.2 BUN/Creatinine Ratio 11.4 Glucose 159 H POC Glucose (mg/dL) Serum Osmolality 312 H Lactic Acid Calcium 8.2 L Phosphorus 3.4 Magnesium 2.4 Total Bilirubin AST ALT Alkaline Phosphatase Troponin I Total Protein Albumin Globulin Albumin/Globulin Ratio Urine Color Urine Appearance Urine pH Ur Specific [place] Urine Protein Urine Ketones Urine Blood Urine Nitrate Urine Bilirubin Urine Urobilinogen Ur Leukocyte Esterase Urine WBC (Auto) Urine RBC (Auto) Urine Bacteria Urine Glucose Blood Type Antibody Screen 01/22/19 01/22/19 01/22/19 00:13 00:13 00:21 WBC RBC Hgb Hct MCV MCH MCHC RDW Plt Count MPV Neut % (Auto) Lymph % (Auto) [place] % (Auto) Eos % (Auto) Baso % (Auto) Absolute Neuts (auto) Absolute Lymphs (auto) Absolute Monos (auto) Absolute Eos (auto) Absolute Basos (auto) Absolute Nucleated RBC Nucleated RBC % Hem Pathologist Commnt INR (Anticoag Therapy) 1.31 H APTT Patient Temperature ABG pH 7.43 ABG pH (Temp Correct) ABG pCO2 29 L ABG pCO2 (Temp Corrct ABG pO2 177 H ABG pO2 (Temp Correct ABG HCO3 21.9 ABG O2 Saturation 99.8 H ABG Base Excess -3.9 L Respiration Rate O2 Delivery Device Ventilator Type Vent Mode FiO2 Inspiratory Time PEEP Pressure Support Pressure Control EPAP IPAP BiPAP Sodium Potassium Chloride Carbon Dioxide Anion Gap BUN Creatinine Est GFR ( Amer) Est GFR (Non-Af Amer) BUN/Creatinine Ratio Glucose POC Glucose (mg/dL) Serum Osmolality Lactic Acid 2.4 H* Calcium Phosphorus Magnesium Total Bilirubin AST ALT Alkaline Phosphatase Troponin I Total Protein Albumin Globulin Albumin/Globulin Ratio Urine Color Urine Appearance Urine pH Ur Specific [place] Urine Protein Urine Ketones Urine Blood Urine Nitrate Urine Bilirubin Urine Urobilinogen Ur Leukocyte Esterase Urine WBC (Auto) Urine RBC (Auto) Urine Bacteria Urine Glucose Blood Type Antibody Screen 01/22/19 01/22/19 01/22/19 03:20 05:20 05:20 WBC 15.7 H RBC 2.78 L Hgb 8.1 L Hct 25 L MCV 89 MCH 29 MCHC 33 RDW 14 Plt Count 206 MPV 7.7 Neut % (Auto) 71.9 Lymph % (Auto) 14.9 [place] % (Auto) 13.1 Eos % (Auto) 0.0 Baso % (Auto) 0.1 Absolute Neuts (auto) 11.3 H Absolute Lymphs (auto) 2.3 Absolute Monos (auto) 2.1 H Absolute Eos (auto) 0.0 Absolute Basos (auto) 0.0 Absolute Nucleated RBC 0.0 Nucleated RBC % 0.1 Hem Pathologist Commnt INR (Anticoag Therapy) APTT Patient Temperature ABG pH ABG pH (Temp Correct) ABG pCO2 ABG pCO2 (Temp Corrct ABG pO2 ABG pO2 (Temp Correct ABG HCO3 ABG O2 Saturation ABG Base Excess Respiration Rate O2 Delivery Device Ventilator Type Vent Mode FiO2 Inspiratory Time PEEP Pressure Support Pressure Control EPAP IPAP BiPAP Sodium 146 H Potassium 4.0 Chloride 116 H Carbon Dioxide 22 Anion Gap 8 BUN 11 Creatinine 0.89 Est GFR ( Amer) 130.6 Est GFR (Non-Af Amer) 107.9 BUN/Creatinine Ratio 12.4 Glucose 159 H POC Glucose (mg/dL) Serum Osmolality 311 H Lactic Acid Calcium 7.9 L Phosphorus 2.8 Magnesium 2.2 Total Bilirubin AST ALT Alkaline Phosphatase Troponin I Total Protein Albumin Globulin Albumin/Globulin Ratio Urine Color Urine Appearance Urine pH Ur Specific [place] Urine Protein Urine Ketones Urine Blood Urine Nitrate Urine Bilirubin Urine Urobilinogen Ur Leukocyte Esterase Urine WBC (Auto) Urine RBC (Auto) Urine Bacteria Urine Glucose Blood Type Antibody Screen 01/22/19 01/22/19 01/22/19 05:20 05:20 05:39 WBC RBC Hgb Hct MCV MCH MCHC RDW Plt Count MPV Neut % (Auto) Lymph % (Auto) [place] % (Auto) Eos % (Auto) Baso % (Auto) Absolute Neuts (auto) Absolute Lymphs (auto) Absolute Monos (auto) Absolute Eos (auto) Absolute Basos (auto) Absolute Nucleated RBC Nucleated RBC % Hem Pathologist Commnt INR (Anticoag Therapy) 1.34 H APTT Patient Temperature ABG pH 7.44 ABG pH (Temp Correct) ABG pCO2 31 L ABG pCO2 (Temp Corrct ABG pO2 173 H ABG pO2 (Temp Correct ABG HCO3 23.3 ABG O2 Saturation 99.7 H ABG Base Excess -2.1 L Respiration Rate O2 Delivery Device Ventilator Type Vent Mode FiO2 Inspiratory Time PEEP Pressure Support Pressure Control EPAP IPAP BiPAP Sodium Potassium Chloride Carbon Dioxide Anion Gap BUN Creatinine Est GFR ( Amer) Est GFR (Non-Af Amer) BUN/Creatinine Ratio Glucose POC Glucose (mg/dL) Serum Osmolality Lactic Acid 1.8 Calcium Phosphorus Magnesium Total Bilirubin AST ALT Alkaline Phosphatase Troponin I Total Protein Albumin Globulin Albumin/Globulin Ratio Urine Color Urine Appearance Urine pH Ur Specific [place] Urine Protein Urine Ketones Urine Blood Urine Nitrate Urine Bilirubin Urine Urobilinogen Ur Leukocyte Esterase Urine WBC (Auto) Urine RBC (Auto) Urine Bacteria Urine Glucose Blood Type Antibody Screen 01/22/19 09:08 WBC RBC Hgb Hct MCV MCH MCHC RDW Plt Count MPV Neut % (Auto) Lymph % (Auto) [place] % (Auto) Eos % (Auto) Baso % (Auto) Absolute Neuts (auto) Absolute Lymphs (auto) Absolute Monos (auto) Absolute Eos (auto) Absolute Basos (auto) Absolute Nucleated RBC Nucleated RBC % Hem Pathologist Commnt INR (Anticoag Therapy) APTT Patient Temperature ABG pH ABG pH (Temp Correct) ABG pCO2 ABG pCO2 (Temp Corrct ABG pO2 ABG pO2 (Temp Correct ABG HCO3 ABG O2 Saturation ABG Base Excess Respiration Rate O2 Delivery Device Ventilator Type Vent Mode FiO2 Inspiratory Time PEEP Pressure Support Pressure Control EPAP IPAP BiPAP Sodium 145 Potassium 3.8 Chloride 115 H Carbon Dioxide 23 Anion Gap 7 BUN 11 Creatinine 0.86 Est GFR ( Amer) 135.8 Est GFR (Non-Af Amer) 112.3 BUN/Creatinine Ratio 12.8 Glucose 151 H POC Glucose (mg/dL) Serum Osmolality Lactic Acid Calcium 8.0 L Phosphorus Magnesium Total Bilirubin 0.30 AST 73 H ALT 11 Alkaline Phosphatase 53 Troponin I Total Protein 5.4 L Albumin 3.1 L Globulin 2.3 Albumin/Globulin Ratio 1.3 Urine Color Urine Appearance Urine pH Ur Specific [place] Urine Protein Urine Ketones Urine Blood Urine Nitrate Urine Bilirubin Urine Urobilinogen Ur Leukocyte Esterase Urine WBC (Auto) Urine RBC (Auto) Urine Bacteria Urine Glucose Blood Type Antibody Screen Nutrition: NPO for now Impression: 23 M with no significant past medical history with witnessed loss of consciousness with resultant severe trauma manifesting scalp hematoma, coup/ contrecoup brain injury, multiple areas of parenchymal hematoma and SAD s/p bilaters/p bilateral hemicraniectomy 01/20, intubated/mechanical ventilated intra-op and remains intubated since. Course complicated by shock and need for pressors. Plan: # Acute Traumatic brain injury (TBI) s/p bilateral hemicraniectomy, ICP placement # Refractory elevated intracranial pressure (ICP) ~80 # Neurogenic shock # Polyuria # Lactic acidosis # Acute respiratory failure with acute ventilator dependance # Hyponatremia # Hypophosphatemia # Hypocalcemia # Reactive leukocytosis # Acute blood loss anemia - further worsening noted on CT head from yesterday evening, including increased global cerebral edema, increasing hematoma, and herniation through the craniectomy sites - off fentanyl/propofol, nimbex since 0800am - off TTM since 10 am - off pressors today - s/p bilateral hemicraniectomy, ICP placement 01/21 - at this point it is determined that meaningful brain function is not salvagable, therefore although full code will not pursue aggressive measure - Na+ target >145 - target MAP >70 - No SWT/SBT - keep HOB >45 deg - maintain euvolemia with NS - Euthermia - Correct electrolyte to avoid metabolic derrangements - keppra for sz ppx- 1000mg q12 h - Target hgb >/=7 or for active bleed PPX DVT-SQH GI- famotidine Critical care issues: Traumatic brain injury, ICP monitoring, acute vent dependance, shock, on pressors Critical care time: 40 minutes
--- NOTE | 2019-01-22 12:33 | PN ---
Progress Note - Progress Note Date of Service: 01/22/19 SOAP: Subjective: []Marked Facial swelling Remains on multiple pressors as well as paralytica ,fentanyl and diprivan Patient chemically sedated and paralyzed Objective: []Bilateral pupils 10 mm non reactive Oculocephalic reflexes absent Unable to assess further neuro function secondary to medications ICP 80 Assessment: []Probable brain Plan: []Discussed with Dr. Borden who will assist with brain determination process Family aware of status Have discontinued all sedating ,analgesic and paralytic medications Prognosis grim
[2019-01-22] MEDS ORDERED: Metoprolol Tartrate IV* 1 MG/ML 5 ML VIAL IV PRN (15:39)
--- NOTE | 2019-01-22 16:52 | CONS ---
CONSULTATION REPORT: DATE OF CONSULT: 01/22/19. PATIENT OF: Dr. Falcon and Dr. Sunshine.* HISTORY OF PRESENT ILLNESS: This is a 23-year-old man who had been in good general health, who had some alcohol and then fell with a head injury and initially brief loss of consciousness. When he came in, he was talking and said he had a couple of beers with coma score on admission was 15. He was admitted to the ICU and the CT scan was positive for subdural hematoma, parenchymal hematoma, cerebral edema, and subarachnoid hemorrhage. The patient initially received Keppra and mannitol. The patient had further deterioration from the severe traumatic brain injury and had bilateral decompressive craniectomies for the trauma, with placement of intracranial pressure monitors and storage of the bone flaps. The patient briefly has a cooling protocol. The patient's meds include phenobarbital 260 mg and one- time dose of mannitol, cisatracurium, fentanyl drip last given this morning. Hydromorphone given on 01/21/19. Midazolam discontinued at 7 this morning. Propofol stopped earlier this morning. He was on a vecuronium drip, also stopped at 7:27 this morning. CURRENT MEDICATIONS: Include: 1. Phenylephrine drip. 2. Vasopressin. 3. Zofran. 4. Norepinephrine. 5. Keppra. 6. Pepcid. PHYSICAL EXAM: On exam, temperature 93.98, pulse 76, respirations 20, on a ventilator, not breathing over the ventilator, blood pressure 156/76. He had pupils 9 mm and unreactive bilaterally, absent corneals, no cough or gag. He is not breathing over the vent. He did not react to noxious stimuli in any side. DIAGNOSTIC STUDIES/LAB DATA: CT head was reviewed and showed bilateral bleeding. His most recent CT showing extensive bilateral swelling most prominent in the left hemisphere. There is increasing left temporal lobe hemorrhage, bilateral frontal lobes as well as hemorrhage in the right frontotemporal lobes. There is midline shift that was new from the initial CT scan to the right of 7 mm with effacement of the left ventricle and loss of sulci. There is a subdural along the left tentorium. White count 15.7, hematocrit 25. INR 1.34, PTT 27.9. Most recent blood gas 744, pCO2 31, pO2 173. Normal CMP other than glucose 151, serum osm is 307, calcium of 8, AST 73. Toxicology was positive presumptively for cannabinoids, alcohol was 54. ASSESSMENT AND PLAN: I discussed with Dr. Falcon earlier today and the ICU attending as well as Humberto's family that he sustained severe traumatic brain injury with extensive bleeding and swelling with dramatically raised intracranial pressures and the swelling may continue to get worse. He is showing signs of herniation, although his exam may be somewhat obscured by medications he has received up until this morning. I discussed with the family that his prognosis is extremely poor, that the most likely out come may be brain . It is possible that there might be small areas of his brain that could survive, but that his overall neurological prognosis, would still be grim. Discussed because of the sedative medicines that he was on, we would get a more full picture over the next day or two and we will be discussing further. I discussed with as family as to the ICU attending that with such severe brain disease he would be prone to cardiac arrhythmias; and at this point, they would like to have a full cardiac resuscitation until at least the brother comes and joins the family, which will take place tomorrow early afternoon. They understand the gravity of the situation. Thank you for sharing his case. [id number]/[facility] #: [id number] JAMES
[2019-01-22] MEDS: Metoprolol Tartrate TAB* 25 MG PO SCH (17:31)
[2019-01-22] MEDS: Vasopressin* 100 UNITS in D5W 250 ML BAG IVPB SCH (22:16)
[2019-01-23] MEDS: Insulin LISPRO* 1 UNITS UNIT SUBCUT SCH ×3 (00:06→11:46)
[2019-01-23] MEDS: Norepinephrine 16MCG/ML IVPRE* 4,000 MCG/250 ML BAG IV SCH ×4 (00:32→13:30)
[2019-01-23] MEDS: Metoprolol Tartrate TAB* 25 MG PO SCH ×2 (00:34→09:19)
[2019-01-23] MEDS: levETIRAcetam 1000MG IVPREMIX* 1,000 MG/100 ML BAG IVPB SCH (04:44)
[2019-01-23] MEDS: Famotidine IV* 10 MG/ML 2 ML (20 mg) IV SLOW PU SCH (09:18)
[2019-01-23] MEDS ORDERED: Metoprolol Tartrate TAB* 25 MG PO PRN (09:20)
[2019-01-23 10:03] LABS: INR 1.37 (0.82-1.09)
[2019-01-23 10:09] LABS: ABS Lymphocytes 1.6 10^3/ul (1.0-4.8); ABS Monocytes 0.7 10^3/ul (0-0.8); ABS Neutrophils 7.1 10^3/ul (1.5-7.7); Eosinophil % 0.1 %; Hematocrit 19 % (42-52); Hemoglobin 6.4 g/dL (14.0-18.0); Lymphocyte % 16.7 %; Mean Corpuscular HGB Conc 35 g/dL (31-36); Mean Corpuscular Hemoglobin 31 pg (27-31); Mean Corpuscular Volume 89 fL (80-94); Mean Platelet Volume 8.1 fL (7.4-10.4); Nucleated Red Blood Cells % 0.1; Platelet Count 176 10^3/uL (150-450); Red Cell Distribution Width 14 % (10.5-15); White Blood Count 9.4 10^3/uL (3.5-10.8)
[2019-01-23 10:14] LABS: BUN/Creatinine Ratio 16.2 (8-20); Calcium 7.9 mg/dL (8.6-10.3); EGFR African American 107.9 (>60); EGFR Non-African American 89.2 (>60); Magnesium 1.9 mg/dL (1.9-2.7); Phosphorus 1.8 mg/dL (2.5-5.0); Potassium 3.8 mmol/L (3.5-5.0)
[2019-01-23] MEDS: Vasopressin* 100 UNITS in D5W 250 ML BAG IVPB SCH (10:43)
[2019-01-23] MEDS: Phenylephrine 10 MG/ML VIAL* 50 MG in NS 0.9% 250 ML* 245 ML IV SCH (10:43)
[2019-01-23] MEDS ORDERED: Piperacillin/Tazobac ADVAN(*) 3.375 GM in NS 0.9% 100 ML* 100 ML IVPB ONE (11:14)
[2019-01-23] MEDS ORDERED: Hydrocortisone INJ* 100 MG VIAL IV SCH (12:00)
[2019-01-23] MEDS ORDERED: Potassium Phosphate IV* 15 MMOLE in NS 0.9% 250 ML* 250 ML IVPB ONE (12:00)
[2019-01-23] MEDS ORDERED: Vancomycin(*) 1,500 MG in NS 0.9% 250 ML* 250 ML IVPB ONE (12:00)
[2019-01-23] MEDS ORDERED: Chlorhexidine MOUTHWASH 0.12%* 15 ML UDC SWISH SPIT SCH (12:00)
[2019-01-23] MEDS ORDERED: Zosyn per Pharmacy* NOTE FOLLOW UP SCH (12:00)
[2019-01-23] MEDS ORDERED: Vancomycin per Pharmacy* NOTE FOLLOW UP PRN (13:02)
--- NOTE | 2019-01-23 13:55 | PN ---
Date of Service: 01/23/19 Critical Care Services: 23 M with no significant past medical history with witnessed loss of consciousness with resultant severe trauma manifesting with scalp hematoma, extensive parenchymal hemorrhagic contusions involving right frontal and left temporal lobes, right fronto-parietal lobe, frontal hematoma, right frontal hemorrhagic contusion, coup/contrecoup lesion s/p bilateral hemicraniectomy , intubated/mechanical ventilated intra-op and remains intubated since. Course complicated by shock and now on levophed, phenylephrine, vasopressin. Currently, on versed/fentayl/nimbex gtt. 01/23: Patient seen and examined at the bedside. Propofol, nimbex, and fentanyl turned off 01/22 08am. Re-warming started yesterday and now. Remains on pressors- NE, vasopressin, and Phenylephrine. 3% HS stopped 01/22. + UOP. Remains on the ventilator, no spontaneous breaths appreciated. Bedside neurological exam for brain performed and consistent with absence of brainstem function. Awaiting results of apnea testing Vital Signs: Temp Pulse Resp BP SpO2 FiO2 97.7 F 100 20 84/53 95 60 01/23/19 13:30 01/23/19 13:30 01/23/19 12:00 01/23/19 07:05 01/23/19 13:30 01/23 12:31 Physical Exam: GEN: NAD, intubated on ventilator, not on sedation HEENT: Other - s/p bi-hemicraniectomy, ICP in place, generalized scalp edema. Periorbital edema improved with ecchymosis. Pupils fixed and midline 4mm bilaterally. Lungs: Clear to auscultation Cardiovascular: Normal S1, Normal S2, Other - tachycardaia Abdomen: Hypoactive bowel sounds, Soft, Other - bone flap in the abd cavity Extremities: No clubbing, No cyanosis, No edema Skin: No rashes, No breakdown except for post surgical/traumatic areas on the scalp Neurological: Testing consistent with absence of brainstem reflex- no pupillary/ corneal reflex, no facial movement to noxious stimuli, no withdrawal or hemodynamic changes with illicit pain, negative occulocephalic/occulovestibular reflex, no gag/cough reflex Fluid Balance (Past 24 Hours): I= O= Net Intake & Output 01/21/19 01/22/19 01/23/1910/19 06:59 06:59 06:59 06:59 Intake Total 355 4793 1562.5 0 Output Total 1700 5940 2370 550 Balance -1345 -1147 -807.5 -550 Weight 195 lb 1.745 oz 205 lb 14.588 oz Intake: IV Fluids 355 50 LR 300 NS 50ML, Cefazolin 2G 50 Potassium 55 IVPB 956 Medicated IV 3223 1325.5 CC - Cisatracurium 352 CC - Norepinephrine/ 1549 885 Levophed CC - Phenylephrine/ 246 102 Neosynephrine CC - Vasopressin/ 98 71.5 Pitressin Keppra 100 calcium gluconate 120 propofol 246 55 sodium phos 199 vecuromium 413 112 IV Narcotic Infusion 564 157 Fentanyl 183 47 Versed 381 110 Oral 0 0 0 Tube Feeding Flush Amount 80 Output: ALVAREZ #1 40 0 Urine 800 Reynolds 900 5650 2370 550 Estimated Blood Loss 250 ADLs: Meal Record Start: 01/21/19 03: 32 Freq: 09,13,18 Status: Active Protocol: Created 01/21/19 03:32 System (Rec: 01/21/19 03:32 System ICU-M33) Document 01/21/19 13:00 [id number] (Rec: 01/21/19 16:04 [id number] ICU-M33) Document 01/21/19 18:00 SHV8435 (Rec: 01/21/19 18:14 AXV2011 ICU-M33) Document 01/22/19 09:00 [id number] (Rec: 01/22/19 09:54 FAW5110 ICU-M33) Document 01/22/19 13:00 [id number] (Rec: 01/22/19 14:33 JAH3928 ICU-M33) Document 01/22/19 18:00 WJT8455 (Rec: 01/22/19 18:17 JUE6476 ICU-C10) Document 01/23/19 09:00 [id number] (Rec: 01/23/19 09:56 FBW5586 ICU-C16) Intake and Output Start: 01/21/19 00: 13 Freq: Status: Cancelled Protocol: Created 01/21/19 00:13 System (Rec: 01/21/19 00:13 System ED-C22) Document 01/21/19 03:09 [id number] (Rec: 01/21/19 03:09 HQY8784 ED-C22) Intake and Output Start: 01/21/19 03: 32 Freq: Q1HR Status: Cancelled Protocol: Created 01/21/19 03:32 System (Rec: 01/21/19 03:32 System ICU-M33) Document 01/21/19 05:08 VNE5635 (Rec: 01/21/19 05:08 NEN2953 ICU-C12) Document 01/21/19 06:00 ECQ7955 (Rec: 01/21/19 07:20 QHA8500 ICU-C12) Document 01/21/19 07:00 HTY6965 (Rec: 01/21/19 07:35 NFF8118 ICU-C25) Intake and Output Start: 01/21/19 11: 25 Freq: Q1HR Status: Active Protocol: Created 01/21/19 11:26 [id number] (Rec: 01/21/19 11:26 [facility]-BG12) Document 01/21/19 11:33 QOW7138 (Rec: 01/21/19 11:33 YGI9953 ICU-M33) Document 01/21/19 11:55 IIL0477 (Rec: 01/21/19 11:55 XZY4156 ICU-M33) Document 01/21/19 13:00 SFA9174 (Rec: 01/21/19 16:04 DYF9483 ICU-M33) Document 01/21/19 16:00 JYP4557 (Rec: 01/21/19 16:25 QCZ3894 ICU-M33) Document 01/21/19 17:00 EFV4754 (Rec: 01/21/19 17:03 ZBT9092 ICU-M33) Document 01/21/19 18:00 NTZ0596 (Rec: 01/21/19 18:14 SFG5575 ICU-M33) Document 01/21/19 19:00 BGD8785 (Rec: 01/21/19 19:59 JJV6524 ICU-M33) Document 01/21/19 20:00 KJE7005 (Rec: 01/21/19 21:51 ZOV8772 ICU-M33) Document 01/21/19 21:00 LGK8158 (Rec: 01/21/19 21:51 USD2543 ICU-M33) Document 01/21/19 21:51 TSX4629 (Rec: 01/21/19 21:51 RNB2701 ICU-M33) Document 01/21/19 23:00 VZV4817 (Rec: 01/21/19 23:58 ZJI4113 ICU-M33) Document 01/21/19 23:58 NGO7722 (Rec: 01/21/19 23:58 ZEQ1532 ICU-M33) Document 01/22/19 00:00 VQO5899 (Rec: 01/22/19 00:31 ZIJ6394 ICU-M33) Document 01/22/19 01:00 LGN5447 (Rec: 01/22/19 01:08 MGC6060 ICU-M33) Document 01/22/19 02:00 FDS6573 (Rec: 01/22/19 02:14 UGR9210 ICU-M33) Document 01/22/19 03:00 QNN2551 (Rec: 01/22/19 03:08 JPU7290 ICU-M33) Document 01/22/19 04:00 YIF0626 (Rec: 01/22/19 04:08 KIM2038 ICU-M33) Document 01/22/19 05:00 HYH9559 (Rec: 01/22/19 05:03 KTY7502 ICU-M33) Document 01/22/19 05:57 NJL0533 (Rec: 01/22/19 05:57 FST1143 ICU-M33) Document 01/22/19 07:00 AET1702 (Rec: 01/22/19 07:27 AAJ6705 ICU-M33) Document 01/22/19 08:00 NBX7729 (Rec: 01/22/19 08:00 GFK3282 ICU-M33) Document 01/22/19 09:00 UBI0093 (Rec: 01/22/19 09:54 ZFL6062 ICU-M33) Document 01/22/19 09:54 ALI2165 (Rec: 01/22/19 09:55 RVR4896 ICU-M33) Document 01/22/19 11:00 PVM2319 (Rec: 01/22/19 11:08 FER9593 ICU-M33) Document 01/22/19 12:00 NWX5449 (Rec: 01/22/19 14:38 VML8450 ICU-C10) Document 01/22/19 13:00 YMN4599 (Rec: 01/22/19 14:38 FZA3526 ICU-C10) Document 01/22/19 14:00 SCJ7050 (Rec: 01/22/19 14:38 PQP1922 ICU-C10) Document 01/22/19 15:00 MWT8828 (Rec: 01/22/19 16:18 GJW6870 ICU-C10) Document 01/22/19 16:00 QVV0448 (Rec: 01/22/19 16:39 PZW8389 ICU-C10) Document 01/22/19 17:00 CGB7282 (Rec: 01/22/19 17:11 ZGC2836 ICU-C10) Document 01/22/19 18:00 WON6474 (Rec: 01/22/19 18:17 LVS1342 ICU-C10) Document 01/22/19 19:00 EVP8796 (Rec: 01/22/19 20:39 WQI5426 ICU-C16) Document 01/22/19 20:00 QPL2138 (Rec: 01/22/19 20:49 TXD4224 ICU-C16) Document 01/22/19 21:00 WNL6113 (Rec: 01/22/19 22:27 BSC6712 ICU-C16) Document 01/22/19 22:00 MBK3441 (Rec: 01/22/19 22:30 QGI1097 ICU-C16) Document 01/22/19 23:00 GCK5516 (Rec: 01/22/19 23:35 SGI3995 ICU-C16) Document 01/23/19 00:00 NZY5833 (Rec: 01/23/19 01:00 GMX3603 ICU-C16) Document 01/23/19 01:00 ZSL4240 (Rec: 01/23/19 01:05 AYM0143 ICU-C16) Document 01/23/19 02:00 CWS6174 (Rec: 01/23/19 02:54 PJH4542 ICU-C16) Document 01/23/19 02:55 PWB5371 (Rec: 01/23/19 02:56 YRN4735 ICU-C16) Document 01/23/19 04:00 YYB5073 (Rec: 01/23/19 05:01 SIE1796 ICU-C16) Document 01/23/19 05:00 XDX6906 (Rec: 01/23/19 05:04 UUS3462 ICU-C16) Document 01/23/19 05:58 SDW0280 (Rec: 01/23/19 05:58 IPJ0777 ICU-C16) Document 01/23/19 07:00 YOU3102 (Rec: 01/23/19 07:24 YQF2970 ICU-C16) Document 01/23/19 09:00 QHJ0588 (Rec: 01/23/19 09:02 GLC7848 ICU-C16) Document 01/23/19 09:20 PUO2771 (Rec: 01/23/19 09:20 DOA1600 ICU-M33) Document 01/23/19 10:00 WBQ4580 (Rec: 01/23/19 11:07 JCX6348 ICU-C16) Document 01/23/19 11:00 OVC8640 (Rec: 01/23/19 11:09 HXF7364 ICU-C16) Document 01/23/19 11:22 MAS9713 (Rec: 01/23/19 11:22 IZE3085 ICU-M33) Document 01/23/19 12:53 OJX8017 (Rec: 01/23/19 12:53 IHA4828 ICU-M33) Labs: Laboratory Results - last 24 hr 01/22/19 01/23/19 01/23/19 17:26 09:17 09:17 WBC RBC Hgb Hct MCV MCH MCHC RDW Plt Count MPV Neut % (Auto) Lymph % (Auto) [place] % (Auto) Eos % (Auto) Baso % (Auto) Absolute Neuts (auto) Absolute Lymphs (auto) Absolute Monos (auto) Absolute Eos (auto) Absolute Basos (auto) Absolute Nucleated RBC Nucleated RBC % INR (Anticoag Therapy) Sodium 147 H Potassium 3.8 Chloride 119 H Carbon Dioxide 25 Anion Gap 3 BUN 17 Creatinine 1.05 Est GFR ( Amer) 107.9 Est GFR (Non-Af Amer) 89.2 BUN/Creatinine Ratio 16.2 Glucose 113 H POC Glucose (mg/dL) 137 H Lactic Acid 1.2 Calcium 7.9 L Phosphorus 1.8 L Magnesium 1.9 01/23/19 01/23/19 09:17 09:17 WBC 9.4 RBC 2.10 L Hgb 6.4 L* Hct 19 L MCV 89 MCH 31 MCHC 35 RDW 14 Plt Count 176 MPV 8.1 Neut % (Auto) 75.9 Lymph % (Auto) 16.7 [place] % (Auto) 7.1 Eos % (Auto) 0.1 Baso % (Auto) 0.2 Absolute Neuts (auto) 7.1 Absolute Lymphs (auto) 1.6 Absolute Monos (auto) 0.7 Absolute Eos (auto) 0.0 Absolute Basos (auto) 0.0 Absolute Nucleated RBC 0.0 Nucleated RBC % 0.1 INR (Anticoag Therapy) 1.37 H Sodium Potassium Chloride Carbon Dioxide Anion Gap BUN Creatinine Est GFR ( Amer) Est GFR (Non-Af Amer) BUN/Creatinine Ratio Glucose POC Glucose (mg/dL) Lactic Acid Calcium Phosphorus Magnesium Studies: Patient Name: ANDIE GLOVER Medical Record#: [id number] Ordering Physician: Marquis Sunshine MD Acct.#: [id number] : 1995 Age: 23 Sex: M Location: INTENSIVE CARE UNIT Exam Date: 01/23/19914 ADM Status: ADM IN Order Information: CHEST AP OR PORT Accession Number: [id number] CPT: 64702 HISTORY: acute respiratory failure COMPARISONS: January 22, 2019 VIEWS: 1: frontal AP view of the chest at 9:28 AM FINDINGS: LINES AND TUBES: An endotracheal tube is noted with the tip overlying the trachea at the level of the clavicles. A gastric tube is noted, with the tip in the left upper quadrant in a prepyloric position.. CARDIOMEDIASTINAL SILHOUETTE: The cardiomediastinal silhouette is normal for portable technique. PLEURA: The costophrenic angles are sharp. No pleural abnormalities are noted. LUNG PARENCHYMA: There has been interval development of confluent alveolar opacification of the right mid and lower lung field. ABDOMEN: The upper abdomen is clear. There is no subphrenic gas. BONES AND SOFT TISSUES: No bone or soft tissue abnormalities are noted. IMPRESSION: 1. LINES AND TUBES ABOVE. 2. INTERVAL DEVELOPMENT OF RIGHT MID AND LOWER LUNG CONSOLIDATION. <Electronically signed by Bud Katz MD in OV> 05/09/19 1002 Dictated By: Bud Katz MD Dictated Date/Time: 01/23/19 1002 Transcribed Date/Time: 01/23/19 1001 Copy to: CC:Marquis Sunshine MD; Javi Falcon MD; No Primary Care Phys,[facility]OPCP Imaging - [facility] Imaging - [facility] Imaging - [facility] [address] [facility] [place] [address] [place], [place] [id number] [place] [id number] [place] [id number] ph ([phone]) ph ([phone]) ph ([phone]) This report is only to be considered final once signed by the Provider(s) as displayed in the "<Electronically Signed by >" field (s). Absence of a signature indicates the report is in a draft status and still needs to be finalized. In the event this document was created by someone other than the signing Provider, the individual initiating the document will be listed in the "Entered by:" or "Dictated by:" peace. 1 of 1 Nutrition: NPO for now Impression: 23 M with no significant past medical history with witnessed loss of consciousness with resultant severe trauma manifesting scalp hematoma, coup/ contrecoup brain injury, multiple areas of parenchymal hematoma and SAD s/p bilaters/p bilateral hemicraniectomy 01/20, intubated/mechanical ventilated intra-op and remains intubated since developed shock and on pressors with clinical exam consistent with brain 01/23 Plan: # Acute Catastrophic Traumatic brain injury (TBI) s/p bilateral hemicraniectomy , ICP placement # Refractory elevated intracranial pressure (ICP) ~80 # Neurogenic shock # Polyuria # Lactic acidosis # Acute respiratory failure with acute ventilator dependance # Hyponatremia # Hypophosphatemia # Hypocalcemia # Reactive leukocytosis # Acute blood loss anemia - further worsening noted on CT head from 01/21 evening, including increased global cerebral edema, increasing hematoma, and herniation through the craniectomy sites - Bedside testing and apnea testing consistent with by neurological criteria - off fentanyl/propofol, nimbex since 01/22 0800am - off TTM since 01/22 10 am - on pressors- NE, vaso, phenyl - s/p bilateral hemicraniectomy, ICP placement 01/21 - target MAP >70 - No SWT/SBT - keep HOB >45 deg - maintain euvolemia with NS - Euthermia - Correct electrolyte to avoid metabolic derrangements PPX DVT-SQH GI- famotidine Family meeting: informed family about diagnosis, prognosis, and current management. Family demostrates understanding and had time to answer quest Critical care issues: Traumatic brain injury, ICP monitoring, acute vent dependance, shock, on pressors Critical care time: 40 minutes
[2019-01-23] MEDS ORDERED: ZOSYN 3.375 GM Q8H per EXTENDED INFUSION IVPB SCH ×2 (16:00)
[2019-01-23] MEDS ORDERED: Norepinephrine 16MCG/ML IVPRE* 4,000 MCG/250 ML BAG IV ONE (16:28)
[2019-01-23 17:48] VITALS: BP 116/69
--- NOTE | 2019-01-23 20:20 | PN ---
PROGRESS REPORT: DATE OF SERVICE: 01/23/19. PATIENT OF: Dr. Falcon and Dr. Sunshine.* HISTORY: This is the neurological followup on this 23-year-old man status post head trauma and coma without response. I had met with family at length today first discussing with them the issues that we will be doing an evaluation for brain , but even if there is some detection of brain function, his case would be consistent with no meaningful or significant recovery, but that a determination of brain would mean that he had and he would be also a candidate for organ donation at this time. Dr. Sunshine and myself answered the patient's family's questions at length and proceeded to do a brain evaluation. The patient was euthermic with blood pressure of systolic above 100. The corneal's were absent. There was no response to cold calorics. There was no facial grimace. There was no gag or cough to deep suction. His apnea test was performed and there was no breathing even with the significant rise of CO2. He had no response to noxious stimulation on either side in any of the 4 extremities. We met with family after determination of brain and discussed situation further with them. They are electing to go with have Humberto donate his organs consistent with his wishes. They also discussed the issue of autopsy together and I have discussed with Dr. Falcon the overall situation and also his opinion whether an aneurysm is possibly the cause of his bleeding at least the initial portion of his bleeding and he did not think so. The patient also did not have severe headache at the time of presentation. No autopsy on neurological basis is likely to show an underlying cause other than the head trauma. [id number]/[facility] #: [id number] [facility]
[2019-01-23] MEDS ORDERED: Vancomycin(*) 1,000 MG in NS 0.9% 250 ML* 250 ML IVPB SCH (21:00)
[2019-01-24] MEDS ORDERED: Vancomycin Trough Check NOTE FOLLOW UP ONE (12:30)
== END 2019-01-23 16:06 | disposition expired | DRG 20 ==
LOC: ED 00:05 → ICU 02:37
PROVIDERS: ADMIT Neurological Surgery; ATTEND Neurological Surgery
PROC: 0NB50ZZ Excision of Right Temporal Bone, Open Approach (ICD-10-PCS; 2019-01-21)
PROC: 4A103BD Monitoring of Intracranial Pressure, Percutaneous Approach (ICD-10-PCS; 2019-01-21)
PROC: 00H032Z Insertion of Monitoring Device into Brain, Percutaneous Approach (ICD-10-PCS; 2019-01-21)
PROC: 04HK33Z Insertion of Infusion Device into Right Femoral Artery, Percutaneous Approach (ICD-10-PCS; 2019-01-21)
PROC: 06HM33Z Insertion of Infusion Device into Right Femoral Vein, Percutaneous Approach (ICD-10-PCS; 2019-01-21)
PROC: 0BH17EZ Insertion of Endotracheal Airway into Trachea, Via Natural or Artificial Opening (ICD-10-PCS; 2019-01-21)
PROC: 5A1945Z Respiratory Ventilation, 24-96 Consecutive Hours (ICD-10-PCS; 2019-01-21)
PROC: 3E033XZ Introduction of Vasopressor into Peripheral Vein, Percutaneous Approach (ICD-10-PCS; 2019-01-21)
PROC: 0NB60ZZ Excision of Left Temporal Bone, Open Approach (ICD-10-PCS; principal; 2019-01-21 07:30)
DX: S06.2X Diffuse traumatic brain injury (principal); J96.00 Acute respiratory failure, unspecified whether with hypoxia or hypercapnia; E87.2 Acidosis; D62 Acute posthemorrhagic anemia; E87.1 Hypo-osmolality and hyponatremia; N39.0 Urinary tract infection, site not specified; W19.XXXA Unspecified fall, initial encounter; R40.2362 Coma scale, best motor response, obeys commands, at arrival to emergency department; R40.2142 Coma scale, eyes open, spontaneous, at arrival to emergency department; R40.2252 Coma scale, best verbal response, oriented, at arrival to emergency department; E87.6 Hypokalemia; R57.8 Other shock; E83.51 Hypocalcemia; E83.39 Other disorders of phosphorus metabolism; G93.2 Benign intracranial hypertension; Y90.2 Blood alcohol level of 40-59 mg/100 ml; Y92.9 Unspecified place or not applicable; Z72.89 Other problems related to lifestyle
CPT/HCPCS: 36415; 36600; 70450; 71045; 72125; 80048; 80053; 80184; 80307; 80320; 81003; 81015; 82803; 83605; 83735; 83930; 84100; 84300; 84484; 85025; 85060; 85610; 85730; 86140; 86850; 86900; 86901; 87040; 93005; 93306; 94002; 94003; 99285; A9270-GY; G0480; J0171; J0330; J0610; J0690; J1170; J1720; J1953; J2001; J2150; J2250; J2270; J2543; J2560; J2704; J3010; J3370; J3475; J3480; J3490

== ENCOUNTER 2019-01-23 16:05 | Day surgery (SDC) | payer OTHER ==
[2019-01-23] MEDS ORDERED: D5W IV SCH (18:00)
[2019-01-23] MEDS ORDERED: LEVOTHYROXINE IV SCH (18:00)
[2019-01-23] MEDS ORDERED: methylPREDNISolone 125 MG* 2 ML VIAL IV ONE (18:00)
[2019-01-23] MEDS ORDERED: LEVOTHYROXINE IV ONE (18:00)
[2019-01-23] MEDS ORDERED: D5W IV ONE (18:00)
[2019-01-23] MEDS ORDERED: Insulin REGULAR(*) 1 UNITS UNIT IV PUSH ONE (18:00)
[2019-01-23] MEDS ORDERED: Dextrose 50% Syringe 50 ML* 25 GM/50 ML SYRINGE IV PUSH ONE (18:00)
[2019-01-23] MEDS: NS 0.9% 1000 ML** 1,000 ML IV SCH (18:05)
[2019-01-23] MEDS: Norepinephrine 16MCG/ML IVPRE* 4,000 MCG/250 ML BAG IV SCH ×2 (18:06→23:05)
[2019-01-23 18:24] LABS: Urine Appearance Cloudy; Urine Bacteria Absent (Absent); Urine Bilirubin Negative (Negative); Urine Blood 2+ (Negative); Urine Color Yellow; Urine Glucose Negative (Negative); Urine Ketones Negative (Negative); Urine Nitrite Negative (Negative); Urine Protein 1+(30 mg/dL) (Negative); Urine Red Blood Cell Trace(0-2/hpf) (Absent); Urine Specific Gravity 1.026 (1.010-1.030); Urine Urobilinogen Negative (Negative); Urine White Blood Cell Trace(0-5/hpf) (Absent)
[2019-01-23] MEDS: Vasopressin* 100 UNITS in D5W 250 ML BAG IVPB SCH (18:48)
[2019-01-23] MEDS: Albuterol 2.5 MG/3 ML NEB.SOL* (0.083%) INH SCH ×2 (19:26→23:33)
[2019-01-23] MEDS: Chlorhexidine MOUTHWASH 0.12%* 15 ML UDC TOPICAL SCH ×2 (20:14→23:05)
[2019-01-23] MEDS: ZOSYN 3.375 GM Q6H - Intermittant 30 min Infusion IVPB SCH ×2 (20:34)
[2019-01-23] MEDS ORDERED: NS 0.9% 1000 ML** 1,000 ML IV ONE (20:40)
[2019-01-23 21:34] VITALS: BP 114/66
[2019-01-24 00:38] LABS: ABS Lymphocytes 0.3 10^3/ul (1.0-4.8); ABS Monocytes 0.4 10^3/ul (0-0.8); ABS Neutrophils 6.9 10^3/ul (1.5-7.7); Hematocrit 14 % (42-52); Hemoglobin 4.8 g/dL (14.0-18.0); Lymphocyte % 4.5 %; Mean Corpuscular HGB Conc 34 g/dL (31-36); Mean Corpuscular Hemoglobin 30 pg (27-31); Mean Corpuscular Volume 89 fL (80-94); Mean Platelet Volume 7.6 fL (7.4-10.4); Platelet Count 121 10^3/uL (150-450); Red Blood Count 1.61 10^6 /uL (4.18-5.48); Red Cell Distribution Width 14 % (10.5-15); White Blood Count 7.6 10^3/uL (3.5-10.8)
[2019-01-24 00:39] LABS: Activated Partial Thrombo Time 28.3 seconds (26.0-36.3); INR 1.35 (0.82-1.09)
[2019-01-24 00:49] LABS: ALT 12 U/L (7-52); AST 29 U/L (13-39); Albumin 2.5 g/dL (3.2-5.2); Alkaline Phosphatase 44 U/L (34-104); Amylase 169 U/L (29-103); BUN/Creatinine Ratio 17.3 (8-20); Blood Urea Nitrogen 17 mg/dL (6-24); CO2 Carbon Dioxide 24 mmol/L (22-32); Calcium 7.8 mg/dL (8.6-10.3); Creatine Kinase 507 U/L (10-223); EGFR African American 116.8 (>60); EGFR Non-African American 96.6 (>60); Globulin 2.4 g/dL (2-4); Glucose 148 mg/dL (70-100); Magnesium 1.8 mg/dL (1.9-2.7); Phosphorus 2.2 mg/dL (2.5-5.0); Potassium 4.1 mmol/L (3.5-5.0); Total Protein 4.9 g/dL (6.4-8.9)
[2019-01-24 00:54] LABS: LDH 205 U/L (140-271)
[2019-01-24 01:08] LABS: Anion Gap 4 mmol/L (2-11); Chloride 119 mmol/L (101-111); Sodium 147 mmol/L (135-145)
[2019-01-24 01:09] LABS: Troponin I 0.05 ng/mL (<0.04)
[2019-01-24] MEDS ORDERED: Lactated Ringers 1000 ML Bag* 1,000 ML IV SCH (01:09)
[2019-01-24] MEDS: ZOSYN 3.375 GM Q6H - Intermittant 30 min Infusion IVPB SCH ×8 (01:26→19:38)
[2019-01-24] MEDS ORDERED: Magnesium Sulfate 2 GM IV (Premix) IVPB ONE (02:30)
[2019-01-24] MEDS: Chlorhexidine MOUTHWASH 0.12%* 15 ML UDC TOPICAL SCH ×6 (02:38→23:50)
[2019-01-24] MEDS ORDERED: Calcium Gluconate INJ* 2 GM in NS 0.9% 100 ML* 100 ML IV ONE (03:30)
[2019-01-24] MEDS: D5W IV SCH ×3 (03:44→19:38)
[2019-01-24] MEDS: LEVOTHYROXINE IV SCH ×3 (03:44→19:38)
[2019-01-24] MEDS: Albuterol 2.5 MG/3 ML NEB.SOL* (0.083%) INH SCH ×5 (04:01→19:32)
[2019-01-24] MEDS: NS 0.9% 1000 ML** 1,000 ML IV SCH (06:02)
[2019-01-24 06:17] LABS: Albumin 2.4 g/dL (3.2-5.2); Albumin/Globulin Ratio 0.9 (1-3); EGFR African American 114.1 (>60); EGFR Non-African American 94.3 (>60); Globulin 2.6 g/dL (2-4); Magnesium 2.1 mg/dL (1.9-2.7); Potassium 4.2 mmol/L (3.5-5.0); Total Bilirubin 0.3 mg/dL (0.2-1.0)
[2019-01-24 07:52] LABS: Hematocrit 18 % (42-52)
[2019-01-24] MEDS ORDERED: Furosemide IV* 10 MG/ML VIAL (40 MG) IV ONE (08:50)
[2019-01-24] MEDS ORDERED: NS 0.9% 1000 ML** 1,000 ML IV SCH (09:00)
[2019-01-24] MEDS ORDERED: Succinylcholine* 20 MG/ML 10 ML VIAL ONE (09:16)
--- NOTE | 2019-01-24 10:37 | ECHO ---
*[facility]* [place] [address] Fax #: [phone] Transthoracic Echocardiogram Patient: Roxana, Height: 72 in / Humberto 182.9 cm : 1995 Weight: 194.6 lb / Study Date: 01/24/2019 88.5 kg Age: 23 BP: Gender: M BMI/BSA: 26.4 kg/m^2 HR: / 2.11 m^2 *School Athletic Director: Shannan Buckner [facility] *Referring Physician: * Marquis Sunshine *Reading Physician: * Louise Chavez MD Indications: Abnormal EKG. Subdural hematoma. Abnormal EKG. Atrial Fibrillation. Conclusions Summary: 1. Impressions: The study is unchanged since the study of 01/21/2019. 2. Left ventricle: The cavity size is normal. Systolic function is hyperdynamic. 3. Mitral valve: There is no significant regurgitation. 4. Aortic valve: There is no evidence of stenosis. 5. Tricuspid valve: There is trivial regurgitation. Study data: Transthoracic echocardiogram. Procedure: Transthoracic echocardiography was performed. Image quality was adequate. The study was technically limited due to Patient on ventilator. Complete 2D, spectral Doppler, and color flow Doppler. Location: ICU Findings Left ventricle: The cavity size is normal. Systolic function is hyperdynamic. Wall motion is normal; there are no regional wall motion abnormalities. Left ventricular diastolic function parameters are indeterminate. Right ventricle: Well visualized. The cavity size is normal. Wall thickness is normal. Systolic function is normal. Ventricular septum: Well visualized. Left atrium: The atrium is normal in size. Right atrium: Well visualized. The atrium is normal in size. Atrial septum: Well visualized. Mitral valve: The leaflets are normal thickness. There is no evidence of stenosis. There is no significant regurgitation. The peak diastolic gradient is 3.1 mm Hg. Aortic valve: Not well visualized. There is no evidence of stenosis. There is no regurgitation. The ratio of LVOT to aortic valve peak velocity is 0.75. The ratio of LVOT to aortic valve mean velocity is 0.73. The mean systolic gradient is 2.0 mm Hg. The peak systolic gradient is 5.0 mm Hg. Tricuspid valve: Not well visualized. The leaflets are normal thickness. There is no evidence of stenosis. There is trivial regurgitation. Pulmonic valve: Not well visualized. Aorta: Ascending aorta: The ascending aorta is appears normal. Aortic arch: The aortic arch is appears normal. The aortic root is not dilated. Pulmonary veins: Not well visualized. Measurements Left ventricle Value 01/21/2019 Ref Left atrium Value 01/21/2019 Ref KAITY, LAX (L) 3.8 cm 3.6 4.2 AP dim, ES (L) 2.30 cm 1.60 3.00 - - 5.8 4.00 ESD, LAX 2.8 cm 3.1 2.5 ML dim, A4C 2.6 cm 1.9 ---- - 4.0 Right atrium Value 01/21/2019 Ref ESD/bsa, LAX 1.3 cm/m^2 1.5 1.3 SI dim, ES (L) 3.2 cm 2.9 3.4 - - 2.1 5.3 FS, LAX 27 % 13 25 - SI dim/bsa, (L) 1.5 cm/m^2 1.4 1.8 43 ES - PW, ED, LAX 0.8 cm 1.5 0.6 3.0 - SI dim, ES, (L) 3.2 cm 2.9 3.4 1.0 A4C - PW/ID, ED, 0.21 0.41 ---- 5.3 LAX SI dim/bsa, (L) 1.5 cm/m^2 1.4 1.8 KAITY (L) 3.8 cm 3.6 4.2 ES, A4C - - 3.0 5.8 ESD 2.8 cm 3.1 2.5 Aortic valve Value 01/21/2019 Ref - Peak v, S 1.1 m/sec 1.14 ---- 4.0 Mean v, S 0.67 m/sec 0.75 ---- KAITY/bsa (L) 1.8 cm/m^2 1.7 2.2 VTI, S 13.8 cm 17.4 ---- - Mean grad, 2.0 mm Hg 3.0 ---- 3.0 S ESD/bsa 1.3 cm/m^2 1.5 1.3 Peak grad, 5.0 mm Hg 5.0 ---- - S 2.1 LVOT/AV, 0.75 0.7 ---- FS 27 % 13 25 - Vpeak ratio 43 AR peak v 1.16 m/sec ---- Mid-wall FS 12 % 5 ---- AR peak 5 mm Hg ---- PW, ED 0.8 cm 1.5 0.6 grad - 1.0 Mitral valve Value 01/21/2019 Ref IVS/PW, ED 1.16 0.88 ---- Peak E 0.88 m/sec 0.57 ---- PW/ID, ED 0.21 0.41 ---- Peak A 0.68 m/sec 0.74 ---- EF 54 % 29 52 - Decel time 158 ms 84 ---- 72 Peak grad, 3.1 mm Hg ---- Mass (L) 94 g 173 96 - D 200 Peak E/A 1.3 0.8 ---- Mass/bsa (L) 45 g/m^2 82 50 - ratio 102 Mass/ht 51.60 g/m 94.84 ---- Aortic arch Value 01/21/2019 Ref Mass/ht^2.7 18.49 g/m^2.7 33.99 ---- Arch diam 2.1 cm ---- E', lat darin, 12.3 cm/sec 5.3 >=10 Arch 1.0 cm/m^2 -------- -- ---- TDI .0 diam/bsa E/e', lat 7 11 ---- darin, TDI Decending aorta Value 01/21/2019 Ref E', med darin, 8.0 cm/sec 6.1 >=7. Artur peak 1.29 m/sec -------- -- ---- TDI 0 ese E/e', med 11 9 ---- darin, TDI Inferior vena cava Value 01/21/2019 Ref E', avg, TDI 10.2 cm/sec 5.7 ---- Diam 2.6 cm 1.8 ---- E/e', avg, 9 10 <=14 TDI LVOT Value 01/21/2019 Ref Peak ese, S 0.83 m/sec 0.8 ---- Mean ese, S 0.5 m/sec 0.49 ---- Mean grad, S 1 mm Hg 1 ---- Ventricular septum Value 01/21/2019 Ref IVS, ED, LAX 0.9 cm 1.3 0.6 - 1.0 IVS, ED 0.9 cm 1.3 0.6 - 1.0 Right ventricle Value 01/21/2019 Ref KAITY, LAX 2.7 cm 1.8 ---- KAITY minor 2.7 cm 2.6 1.9 ax, A4C mid - 3.5 Legend: (L) and (H) mamadou values outside specified reference range. Prepared and electronically signed by Louise Chavez MD 01/24/2019 10:36
[2019-01-24 12:57] LABS: ABS Lymphocytes 0.6 10^3/ul (1.0-4.8); ABS Monocytes 0.6 10^3/ul (0-0.8); ABS Neutrophils 9.2 10^3/ul (1.5-7.7); Hematocrit 21 % (42-52); Hemoglobin 7.3 g/dL (14.0-18.0); Lymphocyte % 6.2 %; Mean Corpuscular HGB Conc 35 g/dL (31-36); Mean Corpuscular Hemoglobin 31 pg (27-31); Mean Corpuscular Volume 88 fL (80-94); Mean Platelet Volume 8.1 fL (7.4-10.4); Nucleated Red Blood Cells % 0.2; Platelet Count 133 10^3/uL (150-450); Red Blood Count 2.39 10^6 /uL (4.18-5.48); Red Cell Distribution Width 15 % (10.5-15); White Blood Count 10.4 10^3/uL (3.5-10.8)
[2019-01-24 13:13] LABS: Activated Partial Thrombo Time 27.5 seconds (26.0-36.3)
[2019-01-24 13:16] LABS: Albumin 2.8 g/dL (3.2-5.2); BUN/Creatinine Ratio 12.4 (8-20); Calcium 8.4 mg/dL (8.6-10.3); EGFR African American 91.6 (>60); EGFR Non-African American 75.7 (>60); Globulin 2.7 g/dL (2-4); Magnesium 1.9 mg/dL (1.9-2.7); Phosphorus 3.8 mg/dL (2.5-5.0); Potassium 3.8 mmol/L (3.5-5.0); Total Bilirubin 0.7 mg/dL (0.2-1.0); Total Protein 5.5 g/dL (6.4-8.9)
[2019-01-24 13:52] LABS: INR 1.27 (0.82-1.09)
[2019-01-24] MEDS ORDERED: KCL 20 MEQ/100 ML IVPREMIX* 20 MEQ/100 ML BAG IV ONE (16:00)
[2019-01-24] MEDS ORDERED: Insulin REGULAR(*) 1 UNITS UNIT SUBCUT ONE (16:20)
[2019-01-24] MEDS ORDERED: Furosemide IV* 10 MG/ML 2 ML VIAL (20 MG) ONE (17:38)
[2019-01-24] MEDS ORDERED: Furosemide IV* 10 MG/ML 2 ML VIAL (20 MG) IV ONE (17:39)
[2019-01-24 18:29] LABS: Albumin 2.7 g/dL (3.2-5.2); BUN/Creatinine Ratio 16.5 (8-20); Calcium 8.5 mg/dL (8.6-10.3); EGFR African American 110.3 (>60); EGFR Non-African American 91.2 (>60); Globulin 2.6 g/dL (2-4); Potassium 3.4 mmol/L (3.5-5.0); Total Bilirubin 0.5 mg/dL (0.2-1.0); Total Protein 5.3 g/dL (6.4-8.9)
[2019-01-24] MEDS: Vasopressin* 100 UNITS in D5W 250 ML BAG IVPB SCH (19:38)
--- NOTE | 2019-01-24 20:40 | PRO ---
AMENDED REPORT NOW INCLUDES DATE OF PROCEDURE - ESIGNED BEFORE ADJUSTMENT * REPORT NOW UNDER CORRECT ACCOUNT BRONCHOSCOPY REPORT: DATE OF PROCEDURE: 01/24/19 - [facility] INDICATION FOR THE PROCEDURE: Therapeutic and inspection of airways prior to organ procurement. DESCRIPTION OF PROCEDURE: The patient was determined to be brain , waiting for organ procurement. The patient remains on ventilator. His ET tube was having air leak. Therefore, ET tube change was performed prior to bronchoscopy. A bougie was inserted through ET tube, cuff was deflated. Bougie was left in place and new ET tube was attempted to be inserted over the bougie. There was some difficulty in pushing the ET tube. The patient had brief episode of hypoxemia. GlideScope was subsequently utilized and patient was intubated under direct visualization. The patient's oxygen saturations improved immediately after new ET tube was positioned in place. Bronchoscopy was subsequently performed. ET tube positioning was confirmed to be 2 cm above the level of denise. The patient was noted to have thick secretions bilaterally. There was evidence of mucus plugging in the right mainstem bronchus. Left side was inspected. Thin secretions were noted on left side and were suctioned out. There was evidence of possible aspiration. There was evidence of thick yellow secretions on the right side, which were suctioned out. Mucus plugs were cleared without any difficulty. Bronchoalveolar lavage was obtained from right middle lobe. Appropriate pictures were taken from all subsegments. No endobronchial lesions were noted. Bronchoscope was then withdrawn. Vent settings adjusted. [id number]/[facility] #: [id number] [facility]
[2019-01-24] MEDS: KCL 20 MEQ/100 ML IVPREMIX* 20 MEQ/100 ML BAG IV SCH ×2 (21:05→23:30)
[2019-01-25] MEDS: D5W IV SCH (00:15)
[2019-01-25] MEDS: LEVOTHYROXINE IV SCH (00:15)
[2019-01-25 00:28] LABS: Activated Partial Thrombo Time 28.6 seconds (26.0-36.3); INR 1.31 (0.82-1.09)
[2019-01-25] MEDS ORDERED: HETASTARCH 6% IV ONE (00:29)
[2019-01-25] MEDS ORDERED: NS IV ONE (00:29)
[2019-01-25 00:30] LABS: Hematocrit 19 % (42-52); Hemoglobin 6.3 g/dL (14.0-18.0); Mean Corpuscular HGB Conc 34 g/dL (31-36); Mean Corpuscular Hemoglobin 30 pg (27-31); Mean Corpuscular Volume 88 fL (80-94); Mean Platelet Volume 8.2 fL (7.4-10.4); Platelet Count 140 10^3/uL (150-450); Red Cell Distribution Width 15 % (10.5-15); White Blood Count 12.2 10^3/uL (3.5-10.8)
[2019-01-25 00:40] LABS: Urine Appearance Cloudy; Urine Bacteria Absent (Absent); Urine Bilirubin Negative (Negative); Urine Blood 3+ (Negative); Urine Color Yellow; Urine Glucose 2+(150 mg/dL) (Negative); Urine Ketones Trace (Negative); Urine Nitrite Negative (Negative); Urine Protein 2+(100 mg/dL) (Negative); Urine Red Blood Cell Trace(0-2/hpf) (Absent); Urine Specific Gravity 1.032 (1.010-1.030); Urine Urobilinogen Negative (Negative); Urine White Blood Cell Trace(0-5/hpf) (Absent)
[2019-01-25 00:40] LABS: Albumin 2.6 g/dL (3.2-5.2); Calcium 8.3 mg/dL (8.6-10.3); EGFR African American 114.1 (>60); EGFR Non-African American 94.3 (>60); Globulin 2.6 g/dL (2-4); Magnesium 1.7 mg/dL (1.9-2.7); Phosphorus 1.9 mg/dL (2.5-5.0); Potassium 3.4 mmol/L (3.5-5.0); Total Bilirubin 0.4 mg/dL (0.2-1.0); Total Protein 5.2 g/dL (6.4-8.9)
[2019-01-25] MEDS ORDERED: Albumin Human 5%* 12.5 GM/250 ML BTL IV SCH ×2 (01:00→08:00)
[2019-01-25 01:10] LABS: ABS Lymphocytes 0.6 10^3/ul (1.0-4.8); ABS Monocytes 0.8 10^3/ul (0-0.8); ABS Neutrophils 10.8 10^3/ul (1.5-7.7); Lymphocyte % 4.6 %; Nucleated Red Blood Cells % 0.3
[2019-01-25] MEDS: ZOSYN 3.375 GM Q6H - Intermittant 30 min Infusion IVPB SCH ×2 (01:13)
[2019-01-25] MEDS ORDERED: Magnesium Sulfate 2 GM IV* 2 GM/50 ML BAG ONE (02:37)
[2019-01-25] MEDS: Chlorhexidine MOUTHWASH 0.12%* 15 ML UDC TOPICAL SCH (02:57)
[2019-01-25] MEDS ORDERED: Magnesium Sulfate 2 GM IV (Premix) IVPB ONE (03:00)
[2019-01-25] MEDS ORDERED: KCL 20 MEQ/100 ML IVPREMIX* 20 MEQ/100 ML BAG IV SCH (03:00)
[2019-01-25] MEDS ORDERED: NS 0.9% 500 ML* 500 ML IV ONE (03:02)
[2019-01-25] MEDS ORDERED: Rocuronium* 10 MG/ML VIAL ONE ×2 (03:49→04:34)
[2019-01-25] MEDS ORDERED: nitroGLYCERIN DRIP* 0 MCG/0 ML BTL ONE (04:38)
[2019-01-25] MEDS ORDERED: Phenylephrine 40 MCG/ML SYRINGE ONE (04:50)
== END 2019-01-25 09:59 | disposition expired ==
LOC: OR 16:05 → ICU 16:06 → OR 01-25 09:59
PROVIDERS: ATTEND Internal Medicine Pulmonary Disease
DX: Z52.89 Donor of other specified organs or tissues (principal)
CPT/HCPCS: 36415; 36600; 71045; 71250; 80048; 80053; 80184; 81003; 81015; 82150; 82248; 82550; 82803; 82977; 83036; 83605; 83615; 83690; 83735; 84100; 84484; 85014; 85018; 85025; 85610; 85730; 86850; 86900; 86901; 86922; 87040; 87070; 87077; 87086; 87205; 93005; 93306; 94002; 94003; 94640; 94667; 94668; A9270-GY; C1776; J0330; J0610; J1720; J1940; J1953; J2543; J2930; J3010; J3370; J3475; J3480; P9016; P9040; P9045